=== PATIENT | male | born 1995 | race Caucasian/White ===

== ENCOUNTER 2019-10-09 17:02 | Emergency (ER) | payer OTHER ==
[2019-10-09 17:33] VITALS: BP 106/70; PULSE 76; TEMP 99; BMI 22.7
--- NOTE | 2019-10-09 17:33 | PDOC ---
Rapid Medical Evaluation Chief Complaint: Weakness Time Seen by Provider: 10/09/19 17:29 Medical Evaluation: Allergies Allergy/AdvReac Type Severity Reaction Status Date / Time No Known Allergies Allergy Verified 10/09/19 17:28 10/09/19 17:30 I have performed a brief in-person evaluation of this patient. The patient presents with a chief complaint of: h/o diabetes present with complains of 2 days h/o epigastric abd pains, loose stool and 1 episode of vomiting. Denies fever. pt did not take anything for symptoms. report weakness Pertinent physical exam findings: afebrile I have ordered the following:cbc, cmp, lipase The patient will proceed to the ED for further evaluation. Discharge Disposition - Diagnosis Epigastric abdominal pain - Discharge Dispostion Condition at time of disposition: Stable - Referrals - Patient Instructions - Post Discharge Activity
--- NOTE | 2019-10-09 18:42 | PDOC ---
History of Present Illness - General Chief Complaint: Weakness Stated Complaint: WEAKNESS Time Seen by Provider: 10/09/19 17:29 - History of Present Illness Initial Comments: 10/09/19 18:41 24-year-old male with a past medical history of diabetes presents for evaluation of abdominal pain and vomiting x1 day Past History - Past Medical History Allergies/Adverse Reactions: Allergies Allergy/AdvReac Type Severity Reaction Status Date / Time No Known Allergies Allergy Verified 10/09/19 17:28 Home Medications: Ambulatory Orders Insulin Glargine,Hum.rec.anlog [Basaglar Kwikpen U-100] 35 unit SQ HS 04/24/19 Insulin Lispro [Humalog] 0 unit SQ ASDIR PRN 04/24/19 COPD: No Diabetes: Yes (IDDM dx at 13 years old) - Surgical History Appendectomy: Yes - Psycho Social/Smoking Cessation Hx Smoking History: Never smoked Have you smoked in the past 12 months: No Information on smoking cessation initiated: No Hx Alcohol Use: No Drug/Substance Use Hx: No Substance Use Type: None Hx Substance Use Treatment: No Review of Systems - Review of Systems Constitutional: No: Fever ABD/GI: Yes: Diarrhea, Nausea, Vomiting *Physical Exam - Vital Signs Last Vital Signs Temp Pulse Resp BP Pulse Ox 99.0 F 76 16 106/70 98 10/09/19 17:29 10/09/19 17:29 10/09/19 17:29 10/09/19 17:29 10/09/19 17:29 - Physical Exam 10/09/19 18:41 GENERAL: The patient is awake, alert, and fully oriented, in no acute distress. HEAD: Normal with no signs of trauma. EYES: sclera anicteric, conjunctiva clear. ENT: Ears normal tympanic membranes normal oropharynx clear uvula midline NECK: Normal range of motion LUNGS: Breath sounds equal, clear to auscultation bilaterally. No wheezes, and no crackles. HEART: S1 and S2 without murmur, rub or gallop. ABDOMEN: Soft, diffusely tender without guarding or rebound, normoactive bowel sounds. No masses. EXTREMITIES: Normal range of motion, no edema. No clubbing or cyanosis. No cords, erythema, or tenderness. NEUROLOGICAL: Cranial nerves II through XII grossly intact. PSYCH: Normal mood, normal affect. SKIN: Warm, Dry, normal turgor, no rashes or lesions noted. Medical Decision Making - Medical Decision Making 10/09/19 18:42 Patient requires further work-up not suitable for fast-track will transfer to the main emergency room Discharge - Discharge Information Problems reviewed: Yes Clinical Impression/Diagnosis: Epigastric abdominal pain Condition: Stable - Follow up/Referral - Patient Discharge Instructions - Post Discharge Activity
[2019-10-09 18:59] LABS: BASO % 0.4 % (0-2.0); EOS % 0.6 % (0-4.5); HEMATOCRIT 49.6 % (35.4-49); HEMOGLOBIN 17.2 GM/dL (11.7-16.9); LYMPH % 36.3 % (8-40); MCH 29.9 pg (25.7-33.7); MCHC 34.6 g/dl (32.0-35.9); MEAN CELL VOLUME 86.5 fl (80-96); MONO % 7.9 % (3.8-10.2); NEUT % 54.8 % (42.8-82.8); PLATELET COUNT 243 K/MM3 (134-434); RBC 5.73 M/mm3 (4.00-5.60); RDW 12.3 % (11.9-15.9); WHITE BLOOD COUNT 6.4 K/mm3 (4.0-10.0)
[2019-10-09 19:33] LABS: ALBUMIN 3.9 g/dl (3.4-5.0); BILIRUBIN,TOTAL 0.6 mg/dL (0.2-1); BLOOD UREA NITROGEN 16.1 mg/dL (7-18); CREATININE 1.1 mg/dL (0.55-1.3); TOT PROT 6.9 g/dl (6.4-8.2)
[2019-10-09] MEDS ORDERED: SODIUM CHLORIDE 1,000 ML IV STA (20:27)
[2019-10-09] MEDS ORDERED: FAMOTIDINE 20 MG/50 ML IVPB 20 MG/50 ML MG IVPB ONE ×2 (20:27→20:41)
[2019-10-09] MEDS ORDERED: ACETAMINOPHEN 1000 MG/100 ML VIAL (NON FORMULARY) IVPB ONE (20:27)
[2019-10-09] MEDS ORDERED: ONDANSETRON 4 MG/2 ML VIAL IVPB ONE (20:27)
[2019-10-09] MEDS ORDERED: ACETAMINOPHEN INJECTION 100 ML IVPB ONE (20:40)
[2019-10-09] MEDS ORDERED: ONDANSETRON 4 MG/2 ML VIAL ONE (20:41)
--- NOTE | 2019-10-09 21:39 | PDOC ---
History of Present Illness - General Chief Complaint: Weakness Stated Complaint: WEAKNESS Time Seen by Provider: 10/09/19 17:29 - History of Present Illness Initial Comments: 10/20/19 00:57 10/20/19 00:58 Past History - Past Medical History Allergies/Adverse Reactions: Allergies Allergy/AdvReac Type Severity Reaction Status Date / Time No Known Allergies Allergy Verified 10/09/19 17:28 Home Medications: Ambulatory Orders Insulin Glargine,Hum.rec.anlog [Basaglar Kwikpen U-100] 35 unit SQ HS 04/24/19 Insulin Lispro [Humalog] 0 unit SQ ASDIR PRN 04/24/19 Famotidine [Pepcid] 20 mg PO BID 14 Days #28 tablet 10/09/19 COPD: No Diabetes: Yes (IDDM dx at 13 years old) - Surgical History Appendectomy: Yes - Psycho Social/Smoking Cessation Hx Smoking History: Never smoked Have you smoked in the past 12 months: No Information on smoking cessation initiated: No Hx Alcohol Use: No Drug/Substance Use Hx: No Substance Use Type: None Hx Substance Use Treatment: No Review of Systems - Review of Systems Constitutional: No: Chills, Fever Respiratory: No: Cough, Shortness of Breath *Physical Exam - Vital Signs Last Vital Signs Temp Pulse Resp BP Pulse Ox 99.0 F 76 16 106/70 98 10/09/19 17:29 10/09/19 17:29 10/09/19 17:29 10/09/19 17:29 10/09/19 17:29 - Physical Exam 10/20/19 00:58 GENERAL:Well developed, well nourished. Awake and alert. No acute distress. HEENT:Normocephalic, atraumatic. PERRLA, EOMI. No conjunctival pallor. Sclera are non-icteric. Moist mucous membranes. Oropharynx is clear. NECK: Supple. Full ROM. No JVD. Carotid pulses 2+ and symmetric, without bruits. No thyromegaly. No lymphadenopathy. CARDIOVASCULAR:Regular rate and rhythm. No murmurs, rubs, or gallops. Distal pulses are 2+ and symmetric. PULMONARY: No evidence of respiratory distress. Lungs clear to auscultation bilaterally. No wheezing, rales or rhonchi. ABDOMINAL:Soft. epigastric tenderness Non-distended. No rebound or guarding. No organomegaly. Normoactive bowel sounds. MUSCULOSKELETAL Normal range of motion at all joints. No bony deformities or tenderness. No CVA tenderness. EXTREMITIES: No cyanosis. No clubbing. No edema. No calf tenderness. SKIN: Warm and dry. Normal capillary refill. No rashes. No jaundice. NEUROLOGICAL: Alert, awake, appropriate. Cranial nerves 2-12 intact. No deficits to light touch and temperature in face, upper extremities and lower extremities. No motor deficits in the in face, upper extremities and lower extremities. Normoreflexic in the upper and lower extremities. Normal speech. Toes are down-going bilaterally. Gait is normal without ataxia. PSYCHIATRIC: Cooperative. Good eye contact. Appropriate mood and affect. ED Treatment Course - LABORATORY CBC & Chemistry Diagram: 10/09/19 18:12 10/09/19 18:12 - ADDITIONAL ORDERS Additional order review: Laboratory Results 10/09/19 18:12 Sodium 134 L Potassium 4.0 Chloride 102 Carbon Dioxide 25 Anion Gap 8 BUN 16.1 Creatinine 1.1 Est GFR (CKD-EPI)AfAm 109.09 Est GFR (CKD-EPI)NonAf 94.12 Random Glucose 314 H Calcium 9.0 Total Bilirubin 0.6 AST 11 L ALT 24 Alkaline Phosphatase 72 Total Protein 6.9 Albumin 3.9 Lipase 84 10/09/19 18:12 RBC 5.73 H MCV 86.5 MCHC 34.6 RDW 12.3 MPV 9.0 Neutrophils % 54.8 D Lymphocytes % 36.3 D Monocytes % 7.9 Eosinophils % 0.6 Basophils % 0.4 - Medications Given in the ED: ED Medications Discontinued Medications Generic Name Dose Route Start Last Admin Trade Name Chidi PRN Reason Stop Dose Admin Acetaminophen 1,000 mg 10/09/19 20:27 10/09/19 20:32 Ofirmev Injection - IVPB 10/09/19 20:28 1,000 mg ONCE ONE Administration Famotidine/Sodium Chloride 20 mg in 50 mls @ 100 mls/hr 10/09/19 20:27 10/09/19 20:32 Pepcid 20 Mg Premixed Ivpb - IVPB 10/09/19 20:56 100 mls/hr ONCE ONE Administration Sodium Chloride 1,000 mls @ 1,000 mls/hr 10/09/19 20:27 10/09/19 20:32 Normal Saline - IV 10/09/19 21:26 1,000 mls/hr ASDIR STA Administration Ondansetron HCl 4 mg 10/09/19 20:27 10/09/19 20:32 Zofran Injection IVPB 10/09/19 20:28 4 mg ONCE ONE Administration Medical Decision Making - Medical Decision Making 10/09/19 21:37 Pt reassessed after IV fluids, pepcid and tylenol feeling much better of note, pt states that he has no PCP at this time and [place], PCP information for follow up was provided by meri through [facility] for patient follow up. currently given po will reassess. Discharge - Discharge Information Problems reviewed: Yes Clinical Impression/Diagnosis: Epigastric abdominal pain Condition: Improved Disposition: HOME - Admission No - Additional Discharge Information Prescriptions: Famotidine [Pepcid] 20 mg PO BID 14 Days #28 tablet - Follow up/Referral - Patient Discharge Instructions Patient Printed Discharge Instructions: DI for Abdominal Pain-Adult Additional Instructions: Please return to the emergency department immediately should you feel worse in any way or have any of the following symptoms: increasing or different abdominal pain, persistent vomiting, fevers or shaking chills. Please return to the emergency department for a recheck in 8-12 hours if the pain is persistent or worse so we can re-evaluate you and ensure that you are not developing a problem that would require surgery or hospitalization. - Post Discharge Activity
--- NOTE | 2019-10-09 21:49 | PDOC ---
Documentation entered by Myrna Garcia SCRIBE, acting as scribe for Naheed Jain MD. Naheed Jain MD: This documentation has been prepared by the Radha jerez Xhesika, SCRIBE, under my direction and personally reviewed by me in its entirety. I confirm that the documentation accurately reflects all work, treatment, procedures, and medical decision making performed by me. Attending Attestation - Resident Resident Name: Fausto Tapia - ED Attending Attestation I have performed the following: I have examined & evaluated the patient, The case was reviewed & discussed with the resident, I agree w/resident's findings & plan, Exceptions are as noted - HPI HPI: 10/09/19 21:46 24-year-old male presents with nausea vomiting and diarrhea x1 day - Physicial Exam PE: 10/09/19 21:46 wnwd 24 yo male in no acute distress neck supple lungs cta b.l csv [id number] abd no rebound, no guarding skin warm and dry extremites from, no deformities neuro axox3,ambulatory - Medical Decision Making 10/09/19 21:49 24-year-old male presents with 1 day of nausea vomiting and diarrhea Past medical history significant for type 1 diabetes on insulin Review of his labs shows unremarkable CBC Chemistries do show an elevated glucose of 314 Patient received IV fluids and antiemetics Benign abdominal exam 10/09/19 21:49 Impression gastroenteritis Patient does not follow with a regular physician and will be referred to Pearl aragon at [address] [facility]
== END 2019-10-09 22:30 | disposition home or self-care (01) ==
LOC: JER 17:02 → MERGE 17:02 → JERFT 17:02 → JER 22:30
PROC: 3E033GC Introduction of Other Therapeutic Substance into Peripheral Vein, Percutaneous Approach (ICD-10-PCS; principal; 2019-10-09)
PROC: 3E033NZ Introduction of Analgesics, Hypnotics, Sedatives into Peripheral Vein, Percutaneous Approach (ICD-10-PCS; 2019-10-09)
PROC: 3E033GC Introduction of Other Therapeutic Substance into Peripheral Vein, Percutaneous Approach (ICD-10-PCS; 2019-10-09)
DX: K52.9 Noninfective gastroenteritis and colitis, unspecified (principal); E10.65 Type 1 diabetes mellitus with hyperglycemia; Z79.4 Long term (current) use of insulin
CPT/HCPCS: 36415; 80053; 83690; 85025; 96365; 96375; 99282-25; J0131; J7030

== ENCOUNTER 2019-11-14 12:47 | Inpatient (IN) | payer OTHER ==
[2019-11-14] MEDS ORDERED: ONDANSETRON 4 MG/2 ML VIAL ONE (13:10)
--- NOTE | 2019-11-14 13:22 | PDOC ---
History of Present Illness - General Stated Complaint: BLOOD SUGAR PROBLEM Time Seen by Provider: 11/14/19 13:10 History Source: Patient Exam Limitations: No Limitations - History of Present Illness Initial Comments: 11/14/19 13:25 24 yo M with a hx of IDDM (DKA hx 1 year ago) [facility], vomiting, lightheadedness, and chest pain since yesterday. Per the patient, he states he ran out of his insulin 2 days ago, but his BGM was within normal limits until yesterday when he noticed they were elevated and in the 420s this AM. The patient states he had 1x vomiting episode yesterday NBNB and denies diarrhea. Denies recent travels, recent sick contacts, and contact with those with recent travel from other countries and no other member of his immediate household is sick. His chest pain began this morning, 1- 2 hours ago, constant, located in the center chest without radiation to the left and right chest wall without worsening with exertion. The patient denies the following: fevers, chills, ears/nose/throat pain, SOB, abdominal pain, back pain, dysuria, hematuria, hematochezia, and leg pain/swelling. He ran out of insulin due to insurance reasons. Allergies: NKDA Past History - Past Medical History Allergies/Adverse Reactions: Allergies Allergy/AdvReac Type Severity Reaction Status Date / Time No Known Allergies Allergy Verified 11/15/19 11:19 Home Medications: Ambulatory Orders Insulin Glargine,Hum.rec.anlog [Basaglar Kwikpen U-100] 35 unit SQ HS 04/24/19 Insulin Lispro [Humalog] 0 unit SQ ASDIR PRN 04/24/19 Famotidine [Pepcid] 20 mg PO BID 14 Days #28 tablet 10/09/19 COPD: No Diabetes: Yes - Surgical History Appendectomy: Yes - Psycho Social/Smoking Cessation Hx Smoking History: Never smoked Have you smoked in the past 12 months: No Information on smoking cessation initiated: No Hx Alcohol Use: No Drug/Substance Use Hx: No Review of Systems - Review of Systems Able to Perform ROS?: Yes Is the patient limited German proficient: No Constitutional: No: Chills, Fever, Weakness HEENTM: No: Eye Pain, Ear Pain, Nose Pain, Throat Pain, Mouth Pain Respiratory: No: Cough, Shortness of Breath, Hemoptysis Cardiac (ROS): Yes: Chest Pain, Lightheadedness. No: Palpitations, Chest Tightness ABD/GI: Yes: Nausea, Poor Appetite, Poor Fluid Intake, Vomiting. No: Constipated, Diarrhea, Rectal Bleeding, Abdominal cramping, Tarry Stools : No: Burning, Dysuria, Hematuria Musculoskeletal: No: Back Pain, Joint Pain, Neck Pain Integumentary: No: Bruising, Flushing, Rash Neurological: No: Headache, Numbness, Tingling, Tremors Psychiatric: No: Change in Appetite Endocrine: No: Unexplained Weight Loss Hematologic/Lymphatic: No: Anemia *Physical Exam - Vital Signs Last Vital Signs Temp Pulse Resp BP Pulse Ox 98.1 F 99 H 18 107/49 L 99 11/14/19 13:03 11/14/19 13:03 11/14/19 13:03 11/14/19 13:03 11/14/19 13:03 - Physical Exam General Appearance: Yes: Nourished, Appropriately Dressed. No: Apparent Distress, Obese HEENT: positive: EOMI, CRISTIANA, Normal Voice, Symmetrical, Pharyngeal Erythema, Hearing Grossly Normal. negative: Pale Conjunctivae, Scleral Icterus (R), Scleral Icterus (L), Muffled/Hoarse voice, Tonsillar Exudate, Tonsillar Erythema, Nasal Congestion, Rhinorrhea, Sinus Tenderness, Excessive drooling Neck: positive: Trachea midline, Supple. negative: Tender, Lymphadenopathy (R), Lymphadenopathy (L), Tender lateral, Tender midline Respiratory/Chest: positive: Lungs Clear, Normal Breath Sounds. negative: Chest Tender, Respiratory Distress, Accessory Muscle Use, Rales, Rhonchi, Stridor, Wheezing, Hyperresonant Cardiovascular: positive: Regular Rhythm, Regular Rate, S1, S2. negative: Systolic Murmur Gastrointestinal/Abdominal: positive: Normal Bowel Sounds, Flat, Soft. negative: Tender Lymphatic: negative: Adenopathy Musculoskeletal: positive: Normal Inspection. negative: CVA Tenderness, Vertebral Tenderness Extremity: positive: Normal Capillary Refill, Normal Inspection, Normal Range of Motion. negative: Tender Integumentary: positive: Normal Color, Dry, Warm Neurologic: positive: Fully Oriented, Alert, Normal Mood/Affect. negative: Facial Droop, Numbness, Sensory Deficit ED Treatment Course - LABORATORY CBC & Chemistry Diagram: 11/15/19 06:45 11/15/19 20:00 - ADDITIONAL ORDERS Additional order review: Laboratory Results 11/14/19 13:00 POC Glucometer 420 11/14/19 13:00 POC Glucometer 420 Medical Decision Making - Medical Decision Making 24 yo M with a hx of IDDM (DKA hx 1 year ago) presents to the emergency department with nausea, vomiting, lightheadedness, and chest pain since yesterday. Initial vitals; Initial Vital Signs Temp Pulse Resp BP Pulse Ox 98.1 F 99 H 18 107/49 L 99 11/14/19 13:03 11/14/19 13:03 11/14/19 13:03 11/14/19 13:03 11/14/19 13:03 Work up: patient presents to the emergency department with N/V with lightheadedness and chest pain in the setting of running out of insulin over the past 48 hours with a hx of DKA. The patient endorses having a BGM of 420s this morning. concerns for HONK vs DKA, but the patient is not AMS currently. Will obtain labs for DKA assessment and will obtain EKG and troponin for ACS rule out, CXR to rule out PNA (A possible etiology to the hyperglycemia) and UA to assess for UTI (no mal-urinary symptoms). Laboratory Tests 11/14/19 11/14/19 11/14/19 13:00 13:30 13:30 WBC 5.3 RBC 5.36 Hgb 16.0 Hct 46.9 MCV 87.6 MCH 29.9 MCHC 34.1 RDW 12.6 Plt Count 205 MPV 8.7 Absolute Neuts (auto) 4.2 Neutrophils % 78.8 Lymphocytes % 16.7 Monocytes % 3.8 Eosinophils % 0.2 Basophils % 0.5 Nucleated RBC % 0 VBG pH POC VBG pCO2 POC VBG pO2 VBG HCO3 VBG O2 Sat (Soco) VBG Base Excess Sodium Potassium Chloride Carbon Dioxide Anion Gap BUN Creatinine Est GFR (CKD-EPI)AfAm Est GFR (CKD-EPI)NonAf POC Glucometer 420 Random Glucose Lactic Acid Calcium Magnesium Total Bilirubin AST ALT Alkaline Phosphatase Creatine Kinase Troponin I Total Protein Albumin Beta-Hydroxybutyrate 72.2 H Urine Color Urine Appearance Urine pH Ur Specific [place] Urine Protein Urine Glucose (UA) Urine Ketones Urine Blood Urine Nitrite Urine Bilirubin Urine Urobilinogen Ur Leukocyte Esterase 11/14/19 11/14/19 11/14/19 13:30 13:30 13:30 WBC RBC Hgb Hct MCV MCH MCHC RDW Plt Count MPV Absolute Neuts (auto) Neutrophils % Lymphocytes % Monocytes % Eosinophils % Basophils % Nucleated RBC % VBG pH 7.26 L POC VBG pCO2 34.2 L POC VBG pO2 63.6 H VBG HCO3 14.9 L VBG O2 Sat (Soco) 90.1 H VBG Base Excess -10.9 L Sodium 137 Potassium 4.8 Chloride 104 Carbon Dioxide 16 L Anion Gap 17 H BUN 17.1 Creatinine 1.0 Est GFR (CKD-EPI)AfAm 122.41 Est GFR (CKD-EPI)NonAf 105.62 POC Glucometer Random Glucose 395 H Lactic Acid 1.7 Calcium 8.7 Magnesium 1.6 L Total Bilirubin 1.2 H AST 14 L ALT 20 Alkaline Phosphatase 66 Creatine Kinase 88 Troponin I < 0.02 Total Protein 6.3 L Albumin 3.6 Beta-Hydroxybutyrate Urine Color Urine Appearance Urine pH Ur Specific [place] Urine Protein Urine Glucose (UA) Urine Ketones Urine Blood Urine Nitrite Urine Bilirubin Urine Urobilinogen Ur Leukocyte Esterase 11/14/19 11/14/19 11/14/19 13:50 15:14 16:18 WBC RBC Hgb Hct MCV MCH MCHC RDW Plt Count MPV Absolute Neuts (auto) Neutrophils % Lymphocytes % Monocytes % Eosinophils % Basophils % Nucleated RBC % VBG pH POC VBG pCO2 POC VBG pO2 VBG HCO3 VBG O2 Sat (Soco) VBG Base Excess Sodium Potassium Chloride Carbon Dioxide Anion Gap BUN Creatinine Est GFR (CKD-EPI)AfAm Est GFR (CKD-EPI)NonAf POC Glucometer 388 382 Random Glucose Lactic Acid Calcium Magnesium Total Bilirubin AST ALT Alkaline Phosphatase Creatine Kinase Troponin I Total Protein Albumin Beta-Hydroxybutyrate Urine Color Yellow Urine Appearance Clear Urine pH 5.0 Ur Specific [place] 1.039 H Urine Protein Negative Urine Glucose (UA) 3+ H Urine Ketones 4+ H Urine Blood Negative Urine Nitrite Negative Urine Bilirubin Negative Urine Urobilinogen 0.2 Ur Leukocyte Esterase Negative 11/14/19 11/14/19 17:38 17:39 WBC RBC Hgb Hct MCV MCH MCHC RDW Plt Count MPV Absolute Neuts (auto) Neutrophils % Lymphocytes % Monocytes % Eosinophils % Basophils % Nucleated RBC % VBG pH POC VBG pCO2 POC VBG pO2 VBG HCO3 VBG O2 Sat (Soco) VBG Base Excess Sodium Potassium Chloride Carbon Dioxide Anion Gap BUN Creatinine Est GFR (CKD-EPI)AfAm Est GFR (CKD-EPI)NonAf POC Glucometer 452 423 Random Glucose Lactic Acid Calcium Magnesium Total Bilirubin AST ALT Alkaline Phosphatase Creatine Kinase Troponin I Total Protein Albumin Beta-Hydroxybutyrate Urine Color Urine Appearance Urine pH Ur Specific [place] Urine Protein Urine Glucose (UA) Urine Ketones Urine Blood Urine Nitrite Urine Bilirubin Urine Urobilinogen Ur Leukocyte Esterase Magnesium 1.6 pH is 7.26 with a gap of 17 with bicarb of 16. Glucose 395 and beta-hyd roxybutyrate of 72.2. The patient's xray is negative for acute process A total of 1 L of NS total given. The patient given a bolus of 1 L of LR with 20 meq of potassium The patient has insulin drip of 6 units/hr. Roughly 0.1 units/kg/hr . The patient was given 1 gram of tylenol for continued chest pain. CXR negative for acute pathologies EKG: ventricular rate 102 bpm, KS is 124 ms, QRS is 88 ms. Sinus tachycardia with no ST elevation or depression. No TWI Patient was re-assessed. BG rised to approximately 423. Patient was given 6 units bolus of IV insulin with rate of drip increased to 9 units/hr. The patient was given an additional 1 L of LR for fluid resuscitation. Per the patient, they felt the pain had nearly resolved in the chest. Awaiting next BMP and trop. Gap resolved and negative troponin. Patient was endorsed to the admitting team and accepted for admission. Discharge - Discharge Information Problems reviewed: Yes Clinical Impression/Diagnosis: DKA (diabetic ketoacidoses) - Follow up/Referral - Patient Discharge Instructions - Post Discharge Activity
[2019-11-14] MEDS ORDERED: SODIUM CHLORIDE 1,000 ML IV STA (13:24)
[2019-11-14 14:06] LABS: BASO % 0.5 % (0-2.0); EOS % 0.2 % (0-4.5); HEMATOCRIT 46.9 % (35.4-49); LYMPH % 16.7 % (8-40); MCH 29.9 pg (25.7-33.7); MCHC 34.1 g/dl (32.0-35.9); MEAN CELL VOLUME 87.6 fl (80-96); MEAN PLT VOLUME 8.7 fl (7.5-11.1); MONO % 3.8 % (3.8-10.2); NEUT % 78.8 % (42.8-82.8); PLATELET COUNT 205 K/MM3 (134-434); RBC 5.36 M/mm3 (4.00-5.60); RDW 12.6 % (11.9-15.9); WHITE BLOOD COUNT 5.3 K/mm3 (4.0-10.0)
[2019-11-14 14:13] LABS: URINE APPEARANCE CLEAR; URINE BILIRUBIN NEGATIVE (NEGATIVE); URINE COLOR YELLOW; URINE GLUCOSE (UA) 3+ (NEGATIVE); URINE KETONE 4+ (NEGATIVE); URINE LEUK ESTERASE NEGATIVE (NEGATIVE); URINE NITRITE NEGATIVE (NEGATIVE); URINE PROTEIN NEGATIVE (NEGATIVE); URINE UROBILINOGEN 0.2 mg/dL (0.2-1.0)
[2019-11-14 14:26] LABS: VENOUS PC02 34.2 mmHg (38-52); VENOUS PH 7.26 (7.31-7.41); VENOUS PO2 63.6 mmHg (28-48)
--- NOTE | 2019-11-14 14:30 | PDOC ---
Documentation entered by Magdiel Vivas SCRIBE, acting as scribe for Erin You MD. Erin You MD: This documentation has been prepared by the Ortega jerez Elijah, SCRIBE, under my direction and personally reviewed by me in its entirety. I confirm that the documentation accurately reflects all work, treatment, procedures, and medical decision making performed by me. Attending Attestation - Resident Resident Name: JorgitoReji - ED Attending Attestation I have performed the following: I have examined & evaluated the patient, The case was reviewed & discussed with the resident, I agree w/resident's findings & plan - HPI HPI: 11/14/19 14:11 Patient is a 24 year old male with a significant past medical history of IDDM ( DKA hx 1 year ago) who presents today with nausea, vomiting, Light headedness and CP. As per family at bedside, patient ran out of Insulin on Tuesday and since his symptoms onset. Patient had one episode of NBNB vomiting and at this time is still nauseas. Patient has been taking Lantus that he was receiving from his Aunt from the [place] once daily in the morning. Allergies: NKA - Physicial Exam PE: 11/14/19 14:19 GENERAL: Awake, alert, and fully oriented, in no acute distress HEAD: No signs of trauma EYES: PERRLA, EOMI, sclera anicteric, conjunctiva clear ENT: Auricles normal inspection, hearing grossly normal, nares patent, oropharynx clear without exudates. Moist mucosa NECK: Normal ROM, supple, no lymphadenopathy, JVD, or masses LUNGS: Breath sounds equal, clear to auscultation bilaterally. No wheezes, and no crackles HEART: +Systolic Sjection Murmur ABDOMEN: Soft, nontender, normoactive bowel sounds. No guarding, no rebound. No masses EXTREMITIES: Normal range of motion, no edema. No clubbing or cyanosis. No cords, erythema, or tenderness NEUROLOGICAL: Cranial nerves II through XII grossly intact. Normal speech, normal gait SKIN: Warm, Dry, normal turgor, no rashes or lesions noted. - Medical Decision Making 11/14/19 14:26 24yoM with no primary care, no insurance, hx of DM type 1 presents w/ acute onset of n/v in setting of running out of his Lantus. [place] sent to him by [place] the [place], he is undocumented. - labs r/o DKA - cardaic monitor - ekg - ivf - insulin bolus and drip prn - admit.
[2019-11-14 14:48] LABS: ALBUMIN 3.6 g/dl (3.4-5.0); ALK PHOS 66 U/L (45-117); ANION GAP 17 MMOL/L (8-16); BILIRUBIN,TOTAL 1.2 mg/dL (0.2-1); BLOOD UREA NITROGEN 17.1 mg/dL (7-18); CALCIUM 8.7 mg/dL (8.5-10.1); CHLORIDE 104 mmol/L (98-107); CO2 16 mmol/L (21-32); GLUCOSE,RANDOM 395 mg/dL (74-106); MAGNESIUM 1.6 mg/dL (1.8-2.4); POTASSIUM 4.8 mmol/L (3.5-5.1); SGOT/AST 14 U/L (15-37); SGPT/ALT 20 U/L (13-61); SODIUM 137 mmol/L (136-145); TOT PROT 6.3 g/dl (6.4-8.2)
[2019-11-14] MEDS ORDERED: MAGNESIUM SULF 50% (8.12 MEQ/2 ML-1 GM VIAL) IVPB ONE (15:32)
[2019-11-14] MEDS ORDERED: LACTATED RINGERS SOLUTION 1000 ML INFUS.BAG IV ONE ×3 (15:39→21:28)
[2019-11-14] MEDS ORDERED: SODIUM CHLORIDE 0.9%/KCL 20 MEQ/1,000 ML INFUS.BAG IV SCH ×2 (15:45→20:00)
[2019-11-14] MEDS ORDERED: INSULIN REGULAR 100 UNITS in SODIUM CHLORIDE 99 ML IVPB SCH ×2 (15:45→18:00)
[2019-11-14] MEDS ORDERED: ACETAMINOPHEN 1000 MG/100 ML VIAL (NON FORMULARY) IVPB ONE (16:10)
[2019-11-14] MEDS ORDERED: INSULIN REGULAR HUMAN 100 UNITS/ML *VIAL ONE (16:13)
[2019-11-14] MEDS ORDERED: ACETAMINOPHEN INJECTION 100 ML IVPB ONE (16:17)
[2019-11-14] MEDS ORDERED: INSULIN REGULAR HUMAN 100 UNITS/ML *VIAL IVPUSH ONE (17:52)
[2019-11-14] MEDS ORDERED: MAGNESIUM 1GM/D5W - 1 GM/100 ML IVPB IVPB ONE (18:36)
[2019-11-14 21:06] LABS: BLOOD UREA NITROGEN 16.4 mg/dL (7-18); CREATININE 1.2 mg/dL (0.55-1.3); GLUCOSE,RANDOM 362 mg/dL (74-106); SODIUM 138 mmol/L (136-145)
[2019-11-14 21:07] LABS: ANION GAP 15 MMOL/L (8-16); CALCIUM 8.2 mg/dL (8.5-10.1); CHLORIDE 110 mmol/L (98-107); CO2 14 mmol/L (21-32); POTASSIUM 4.4 mmol/L (3.5-5.1)
--- NOTE | 2019-11-14 21:43 | PDOC ---
*Physical Exam - Vital Signs Last Vital Signs Temp Pulse Resp BP Pulse Ox 98.8 F 96 H 18 102/55 L 99 11/14/19 18:47 11/14/19 18:47 11/14/19 18:47 11/14/19 18:47 11/14/19 18:47 ED Treatment Course - LABORATORY CBC & Chemistry Diagram: 11/14/19 13:30 11/14/19 19:15 - ADDITIONAL ORDERS Additional order review: Laboratory Results 11/14/19 11/14/19 11/14/19 21:23 20:33 19:17 VBG pH POC VBG pCO2 POC VBG pO2 VBG HCO3 VBG O2 Sat (Soco) VBG Base Excess Sodium Potassium Chloride Carbon Dioxide Anion Gap BUN Creatinine Est GFR (CKD-EPI)AfAm Est GFR (CKD-EPI)NonAf POC Glucometer 212 262 358 Random Glucose Lactic Acid Calcium Magnesium Total Bilirubin AST ALT Alkaline Phosphatase Creatine Kinase Troponin I Total Protein Albumin Beta-Hydroxybutyrate Urine Color Urine Appearance Urine pH Ur Specific [place] Urine Protein Urine Glucose (UA) Urine Ketones Urine Blood Urine Nitrite Urine Bilirubin Urine Urobilinogen Ur Leukocyte Esterase 11/14/19 11/14/19 11/14/19 19:15 17:39 17:38 VBG pH POC VBG pCO2 POC VBG pO2 VBG HCO3 VBG O2 Sat (Soco) VBG Base Excess Sodium 138 Potassium 4.4 Chloride 110 H Carbon Dioxide 14 L Anion Gap 15 BUN 16.4 Creatinine 1.2 Est GFR (CKD-EPI)AfAm 98.19 Est GFR (CKD-EPI)NonAf 84.72 POC Glucometer 423 452 Random Glucose 362 H Lactic Acid Calcium 8.2 L Magnesium Total Bilirubin AST ALT Alkaline Phosphatase Creatine Kinase Troponin I < 0.02 Total Protein Albumin Beta-Hydroxybutyrate Urine Color Urine Appearance Urine pH Ur Specific [place] Urine Protein Urine Glucose (UA) Urine Ketones Urine Blood Urine Nitrite Urine Bilirubin Urine Urobilinogen Ur Leukocyte Esterase 11/14/19 11/14/19 11/14/19 16:18 15:14 13:50 VBG pH POC VBG pCO2 POC VBG pO2 VBG HCO3 VBG O2 Sat (Soco) VBG Base Excess Sodium Potassium Chloride Carbon Dioxide Anion Gap BUN Creatinine Est GFR (CKD-EPI)AfAm Est GFR (CKD-EPI)NonAf POC Glucometer 382 388 Random Glucose Lactic Acid Calcium Magnesium Total Bilirubin AST ALT Alkaline Phosphatase Creatine Kinase Troponin I Total Protein Albumin Beta-Hydroxybutyrate Urine Color Yellow Urine Appearance Clear Urine pH 5.0 Ur Specific [place] 1.039 H Urine Protein Negative Urine Glucose (UA) 3+ H Urine Ketones 4+ H Urine Blood Negative Urine Nitrite Negative Urine Bilirubin Negative Urine Urobilinogen 0.2 Ur Leukocyte Esterase Negative 11/14/19 11/14/19 11/14/19 13:30 13:30 13:30 VBG pH 7.26 L POC VBG pCO2 34.2 L POC VBG pO2 63.6 H VBG HCO3 14.9 L VBG O2 Sat (Soco) 90.1 H VBG Base Excess -10.9 L Sodium 137 Potassium 4.8 Chloride 104 Carbon Dioxide 16 L Anion Gap 17 H BUN 17.1 Creatinine 1.0 Est GFR (CKD-EPI)AfAm 122.41 Est GFR (CKD-EPI)NonAf 105.62 POC Glucometer Random Glucose 395 H Lactic Acid 1.7 Calcium 8.7 Magnesium 1.6 L Total Bilirubin 1.2 H AST 14 L ALT 20 Alkaline Phosphatase 66 Creatine Kinase 88 Troponin I < 0.02 Total Protein 6.3 L Albumin 3.6 Beta-Hydroxybutyrate Urine Color Urine Appearance Urine pH Ur Specific [place] Urine Protein Urine Glucose (UA) Urine Ketones Urine Blood Urine Nitrite Urine Bilirubin Urine Urobilinogen Ur Leukocyte Esterase 11/14/19 11/14/19 13:30 13:00 VBG pH POC VBG pCO2 POC VBG pO2 VBG HCO3 VBG O2 Sat (Soco) VBG Base Excess Sodium Potassium Chloride Carbon Dioxide Anion Gap BUN Creatinine Est GFR (CKD-EPI)AfAm Est GFR (CKD-EPI)NonAf POC Glucometer 420 Random Glucose Lactic Acid Calcium Magnesium Total Bilirubin AST ALT Alkaline Phosphatase Creatine Kinase Troponin I Total Protein Albumin Beta-Hydroxybutyrate 72.2 H Urine Color Urine Appearance Urine pH Ur Specific [place] Urine Protein Urine Glucose (UA) Urine Ketones Urine Blood Urine Nitrite Urine Bilirubin Urine Urobilinogen Ur Leukocyte Esterase 11/14/19 11/14/19 11/14/19 21:23 20:33 19:17 RBC MCV MCHC RDW MPV Neutrophils % Lymphocytes % Monocytes % Eosinophils % Basophils % POC Glucometer 212 262 358 11/14/19 11/14/19 11/14/19 17:39 17:38 16:18 RBC MCV MCHC RDW MPV Neutrophils % Lymphocytes % Monocytes % Eosinophils % Basophils % POC Glucometer 423 452 382 11/14/19 11/14/19 11/14/19 15:14 13:30 13:00 RBC 5.36 MCV 87.6 MCHC 34.1 RDW 12.6 MPV 8.7 Neutrophils % 78.8 Lymphocytes % 16.7 Monocytes % 3.8 Eosinophils % 0.2 Basophils % 0.5 POC Glucometer 388 420 - Medications Given in the ED: ED Medications Discontinued Medications Generic Name Dose Route Start Last Admin Trade Name Chidi PRN Reason Stop Dose Admin Acetaminophen 1,000 mg 11/14/19 16:10 11/14/19 16:35 Ofirmev Injection - IVPB 11/14/19 16:11 1,000 mg ONCE ONE Administration Sodium Chloride 1,000 mls @ 1,000 mls/hr 11/14/19 13:24 11/14/19 13:44 Normal Saline - IV 11/14/19 14:23 1,000 mls/hr ASDIR STA Administration Insulin Human Regular 100 100 mls @ 6.62 mls/hr 11/14/19 15:45 11/14/19 16:31 units/ Sodium Chloride IVPB 0.1 units/kg/hr TITR NAHOMI 6.62 mls/hr Administration Protocol 0.1 UNITS/KG/HR Insulin Human Regular 6 units 11/14/19 17:52 11/14/19 18:05 Novolin R Vial *For Ivpush Or Iv Drip Only* IVPUSH 11/14/19 17:53 6 units ONCE ONE Administration Lactated Ringer's 1,000 ml 11/14/19 15:39 11/14/19 16:25 Lactated Ringers Solution IV 11/14/19 15:40 1,000 ml ONCE ONE Administration Lactated Ringer's 1,000 ml 11/14/19 17:06 11/14/19 17:44 Lactated Ringers Solution IV 11/14/19 17:07 1,000 ml ONCE ONE Administration Magnesium Sulfate 1 gm 11/14/19 15:32 11/14/19 18:46 Magnesium Sulfate IVPB 11/14/19 15:33 1 gm ONCE ONE Administration Medical Decision Making - Medical Decision Making 11/14/19 21:41 24 yo DM I here with hyperglycemia signed out to me by day team, assumed care of pt at 7 pm. awaiting repeat labs. pt was found to be in DKA with hyperglycemia. my reassessment of patient calm sleeping, in no acute distress. pt states he gets his meds from [place] and had run out few days ago. has no meds at home. is usure, but thinks he takes lantus 25 units Q am, and short acting with meals. gap was elevated. most recent levels gap was closed at 15, sugar now at 215. will discontinue drip and admit for glucose control. pt does not have meds at home. will likely require diabetic teaching. Discharge - Discharge Information Problems reviewed: Yes Clinical Impression/Diagnosis: DKA (diabetic ketoacidoses) - Admission Yes - Follow up/Referral - Patient Discharge Instructions - Post Discharge Activity
[2019-11-14] MEDS ORDERED: INSULIN (LEVEMIR) 100 UNITS/ML UNITS SQ STA (23:38)
--- NOTE | 2019-11-14 23:42 | HP ---
CHIEF COMPLAINT: nausea & vomiting, elevated BGM at home PCP: none HISTORY OF PRESENT ILLNESS: 24 y.o. M PMH T1DM diagnosed at age 13 presenting for hyperglycemia. The patient [place] (takes 25U Lantus daily and 3U aspart before meals) but ran out of lantus on Tuesday (11/12/2019). He does not follow up with a PCP but says he has been buying his own insulin and using it based on his fingersticks at home, which he takes regularly. This morning he noticed his BGM was 420's. He has been nauseous since 11/11 and has 1 episode NBNB emesis on 11/12. No recent changes in diet or exercise regimen. Denies [place]/ fevers/ dysuria/ polyuria/ hematuria/ myalgias. Does endorse mild discomfort to ant chest wall, radiates to b/l axilla, no exacerbating factors. The chest discomfort began yesterday and has since been subsiding. ER course was notable for: (1) 20kcl in 1l ns (2) 4L IVF: 2LR, 2 NS (with 20meq KCl each) (3) serum glucose 362, fingerstick 420, B-hydroxybutyrate 72, anion gap 17 Recent Travel: denies. moved [facility] from the 5 yrs ago PAST MEDICAL HISTORY: t1dm PAST SURGICAL HISTORY: L mandible surgery in 2019, appendectomy in 2018 Social History: Smoking: denies Alcohol:denies Drugs: denies Family History: DM in grandmother & brother Allergies No Known Allergies Allergy (Verified 11/14/19 13:07) HOME MEDICATIONS: insulin aspart PHYSICAL EXAMINATION Vital Signs - 24 hr 11/14/19 11/14/19 11/14/19 13:03 13:20 14:29 Temperature 98.1 F Pulse Rate 99 H Pulse Rate [ 105 H Apical] Respiratory 18 19 Rate Blood Pressure 107/49 L Blood Pressure [Left Arm] Blood Pressure 107/66 [Right Arm] O2 Sat by Pulse 99 99 99 Oximetry (%) 11/14/19 11/14/19 11/14/19 18:16 18:47 21:58 Temperature 98.8 F 98.7 F Pulse Rate Pulse Rate [ 96 H 102 H Apical] Respiratory 19 18 17 Rate Blood Pressure Blood Pressure 102/55 L 103/57 L [Left Arm] Blood Pressure [Right Arm] O2 Sat by Pulse 99 99 100 Oximetry (%) 11/14/19 21:59 Temperature Pulse Rate Pulse Rate [ Apical] Respiratory 17 Rate Blood Pressure Blood Pressure [Left Arm] Blood Pressure [Right Arm] O2 Sat by Pulse 100 Oximetry (%) GENERAL: Awake, alert, and fully oriented, in no acute distress. HEENT: NCAT LUNGS: Breath sounds equal, clear to auscultation bilaterally. No wheezes, and no crackles. No accessory muscle use. HEART: tachycardic, normal S1 and S2 without murmur, rub or gallop. Mild TTP ant chest wall. ABDOMEN: Soft, nontender, not distended, normoactive bowel sounds, no guarding MUSCULOSKELETAL: No CVA tenderness. EXTREMITIES: 2+ pulses, warm, well-perfused. No calf tenderness. No peripheral edema. SKIN: no rashes or lesions noted Laboratory Results - last 24 hr Laboratory Last Values WBC 5.3 K/mm3 (4.0-10.0) 11/14/19 13:30 RBC 5.36 M/mm3 (4.00-5.60) 11/14/19 13:30 Hgb 16.0 GM/dL (11.7-16.9) 11/14/19 13:30 Hct 46.9 % (35.4-49) 11/14/19 13:30 MCV 87.6 fl (80-96) 11/14/19 13:30 MCH 29.9 pg (25.7-33.7) 11/14/19 13:30 MCHC 34.1 g/dl (32.0-35.9) 11/14/19 13:30 RDW 12.6 % (11.9-15.9) 11/14/19 13:30 Plt Count 205 K/MM3 (134-434) 11/14/19 13:30 MPV 8.7 fl (7.5-11.1) 11/14/19 13:30 Absolute Neuts (auto) 4.2 K/mm3 (1.5-8.0) 11/14/19 13:30 Neutrophils % 78.8 % (42.8-82.8) 11/14/19 13:30 Lymphocytes % 16.7 % (8-40) 11/14/19 13:30 Monocytes % 3.8 % (3.8-10.2) 11/14/19 13:30 Eosinophils % 0.2 % (0-4.5) 11/14/19 13:30 Basophils % 0.5 % (0-2.0) 11/14/19 13:30 Nucleated RBC % 0 % (0-0) 11/14/19 13:30 VBG pH 7.26 (7.31-7.41) L 11/14/19 13:30 POC VBG pCO2 34.2 mmHg (38-52) L 11/14/19 13:30 POC VBG pO2 63.6 mmHg (28-48) H 11/14/19 13:30 VBG HCO3 14.9 mmol/L (23-29) L 11/14/19 13:30 VBG O2 Sat (Soco) 90.1 % (70-80) H 11/14/19 13:30 VBG Base Excess -10.9 meq/l (-2-2) L 11/14/19 13:30 Sodium 138 mmol/L (136-145) 11/14/19 19:15 Potassium 4.4 mmol/L (3.5-5.1) 11/14/19 19:15 Chloride 110 mmol/L (98-107) H 11/14/19 19:15 Carbon Dioxide 14 mmol/L (21-32) L 11/14/19 19:15 Anion Gap 15 MMOL/L (8-16) 11/14/19 19:15 BUN 16.4 mg/dL (7-18) 11/14/19 19:15 Creatinine 1.2 mg/dL (0.55-1.3) 11/14/19 19:15 Est GFR (CKD-EPI)AfAm 98.19 11/14/19 19:15 Est GFR (CKD-EPI)NonAf 84.72 11/14/19 19:15 POC Glucometer 222 UNITS (80-120) 11/14/19 23:43 Random Glucose 362 mg/dL (74-106) H 11/14/19 19:15 Lactic Acid 1.7 mmol/L (0.4-2.0) 11/14/19 13:30 Calcium 8.2 mg/dL (8.5-10.1) L 11/14/19 19:15 Magnesium 1.6 mg/dL (1.8-2.4) L 11/14/19 13:30 Total Bilirubin 1.2 mg/dL (0.2-1) H 11/14/19 13:30 AST 14 U/L (15-37) L 11/14/19 13:30 ALT 20 U/L (13-61) 11/14/19 13:30 Alkaline Phosphatase 66 U/L (45-117) 11/14/19 13:30 Creatine Kinase 88 U/L (26-308) 11/14/19 13:30 Troponin I < 0.02 ng/ml (0.00-0.05) 11/14/19 19:15 Total Protein 6.3 g/dl (6.4-8.2) L 11/14/19 13:30 Albumin 3.6 g/dl (3.4-5.0) 11/14/19 13:30 Beta-Hydroxybutyrate 72.2 mg/dL (0.2-2.8) H 11/14/19 13:30 Urine Color Yellow 11/14/19 13:50 Urine Appearance Clear 11/14/19 13:50 Urine pH 5.0 (5.0-8.0) 11/14/19 13:50 Ur Specific [place] 1.039 (1.010-1.035) H 11/14/19 13:50 Urine Protein Negative (NEGATIVE) 11/14/19 13:50 Urine Glucose (UA) 3+ (NEGATIVE) H 11/14/19 13:50 Urine Ketones 4+ (NEGATIVE) H 11/14/19 13:50 Urine Blood Negative (NEGATIVE) 11/14/19 13:50 Urine Nitrite Negative (NEGATIVE) 11/14/19 13:50 Urine Bilirubin Negative (NEGATIVE) 11/14/19 13:50 Urine Urobilinogen 0.2 mg/dL (0.2-1.0) 11/14/19 13:50 Ur Leukocyte Esterase Negative (NEGATIVE) 11/14/19 13:50 ASSESSMENT/PLAN: 24 y.o. M PMH T1DM presenting for hyperglycemia, nausea and emesis found to be in DKA #Diabetic ketoacidosis -Initial labs: anion gap 17, Beta-HB 72, serum glucose 360s, fingerstick 420 -UA significant for 4+ ketones, 3+ glucose -Given an initial 2L NS w/ 20meq KCl, additional 2L LR in ED -6U insulin loading dose given & insulin drip initiated -Repeat BMP showing gap improvement to 15, bgms improved to low 200s -insulin drip d/c'd -f/u another repeat BMP, lytes-- monitor K+ closely & replete prn -HbA1c -ABG sent -BGMs ACHS, ISS implemented -Starting levemir 10U HS here, will resume home lantus 25mg HS on discharge -continue IVF hydration -trial of CLD #Chest wall tenderness -EKG shows sinus tachycardia, no ST/T changes -trop neg x 1 -can f/u repeat EKG in AM -continue to monitor, tylenol prn for pain #FEN -S/p 6L total IVF, continuing now 1/2NS @200mL/hr -potassium supplementation, f/u repeat bmp -trial of clears #PPX -LVX sq daily #Dispo Med surg social work consulted will need outpatient PCP and endocrinology follow up for optimization of diabetes medication regimen and proper usage Visit type - Emergency Visit Emergency Visit: Yes ED Registration Date: 11/14/19 Care time: The patient presented to the Emergency Department on the above date and was hospitalized for further evaluation of their emergent condition. - New Patient This patient is new to me today: Yes Date on this admission: 11/15/19 - Critical Care Critical Care patient: No ATTENDING PHYSICIAN STATEMENT I saw and evaluated the patient. I reviewed the resident's note and discussed the case with the resident. I agree with the resident's findings and plan as documented. SUBJECTIVE: OBJECTIVE: ASSESSMENT AND PLAN:
[2019-11-14] MEDS ORDERED: SODIUM CHLORIDE 1,000 ML IV SCH (23:45)
[2019-11-15] MEDS ORDERED: INSULIN (LEVEMIR) 100 UNITS/ML UNITS SQ ONE ×3 (00:37→11:34)
[2019-11-15 01:06] LABS: BLOOD UREA NITROGEN 11.6 mg/dL (7-18); CREATININE 0.9 mg/dL (0.55-1.3); MAGNESIUM 1.6 mg/dL (1.8-2.4); PHOSPHOROUS 2.8 mg/dL (2.5-4.9)
--- NOTE | 2019-11-15 01:42 | PN ---
Teaching Attending Note Name of Resident: Jackie Gibson ATTENDING PHYSICIAN STATEMENT I saw and evaluated the patient. I reviewed the resident's note and discussed the case with the resident. I agree with the resident's findings and plan as documented. SUBJECTIVE: 24-year-old male from [place] with a history of type 1 diabetes mellitus presenting to the hospital complaining of hyperglycemia and not being able to take his medication since this past Tuesday. Patient allegedly moved from [facility] to the [facility] 5 years ago however does not have a doctor here in receives his medications from [facility]. He takes 25 units of Lantus daily as well as 3 units of aspart insulin prior to meals. He reports running out of his Lantus, takes his sugar at home measured his glucose at home and noted that it was over 400 which prompted him to present to the emergency room. Patient reports 2 episodes of vomiting, abdominal pain. Denies any illicit drug use, excessive EtOH, or cigarette smoking. Patient was initially given a loading dose of insulin in the emergency room and then briefly placed on insulin drip. OBJECTIVE: Last Vital Signs Temp Pulse Resp BP Pulse Ox 98.7 F 107 H 22 H 101/54 L 100 11/14/19 21:58 11/15/19 00:00 11/15/19 00:00 11/15/19 00:00 11/15/19 00:00 Physical exam showed a well-built male in no apparent distress. Moist mucous membranes, no rashes noted on skin. No pedal edema. Abnormal Lab Results 11/14/19 11/14/19 11/14/19 13:30 13:30 13:30 VBG pH 7.26 L POC VBG pCO2 34.2 L POC VBG pO2 63.6 H VBG HCO3 14.9 L VBG O2 Sat (Soco) 90.1 H VBG Base Excess -10.9 L Chloride Carbon Dioxide 16 L Anion Gap 17 H Random Glucose 395 H Calcium Magnesium 1.6 L Total Bilirubin 1.2 H AST 14 L Total Protein 6.3 L Beta-Hydroxybutyrate 72.2 H Ur Specific [place] Urine Glucose (UA) Urine Ketones 11/14/19 11/14/19 11/14/19 13:50 19:15 23:58 VBG pH POC VBG pCO2 POC VBG pO2 VBG HCO3 VBG O2 Sat (Soco) VBG Base Excess Chloride 110 H 112 H Carbon Dioxide 14 L 17 L Anion Gap Random Glucose 362 H 229 H Calcium 8.2 L 8.0 L Magnesium 1.6 L Total Bilirubin AST Total Protein Beta-Hydroxybutyrate Ur Specific [place] 1.039 H Urine Glucose (UA) 3+ H Urine Ketones 4+ H EKG showed sinus tachycardia, chest x-ray reviewed, within normal limits. ASSESSMENT AND PLAN: 24-year-old male with mild DKA, anion gap was closed on repeat chemistry. Secondary to medication noncompliance as patient did not have his Lantus insulin. Very high beta hydroxybutyrate, positive urine ketones found. Admit to [facility] IV fluid hydration aggressively Replete electrolytes aggressively including magnesium and phosphate NovoLog Insulin sliding scale Lantus insulin 25 units nightly Basal insulin was administered Consider endocrinology consult coating line worker intervention A1c Zofran if nausea or vomiting Heparin subcutaneously for DVT prophylaxis
[2019-11-15] MEDS ORDERED: MAGNESIUM SULF 50% (8.12 MEQ/2 ML-1 GM VIAL) IVPB ONE (01:44)
[2019-11-15 03:35] VITALS: BMI 25.8
[2019-11-15] MEDS ORDERED: INSULIN SLIDING SCALE (NOVOLOG) 1 VIAL SQ SCH (07:00)
[2019-11-15 07:36] LABS: ARTERIAL BLOOD GAS BASE EXCESS -13.4 meq/l (-2-2); ARTERIAL BLOOD GAS PCO2 25.1 mmHg (35-45); ARTERIAL BLOOD GAS PO2 107 mmHg (80-100); ARTERIAL BLOOD GAS pH 7.29 (7.35-7.45)
[2019-11-15 07:37] LABS: ALLENS TEST POSITIVE
[2019-11-15 08:12] LABS: BASO % 0.3 % (0-2.0); HEMATOCRIT 43.2 % (35.4-49); HEMOGLOBIN 14.7 GM/dL (11.7-16.9); LYMPH % 21.3 % (8-40); MCH 30.1 pg (25.7-33.7); MCHC 33.9 g/dl (32.0-35.9); MEAN CELL VOLUME 88.7 fl (80-96); MONO % 7.5 % (3.8-10.2); NEUT % 70.9 % (42.8-82.8); PLATELET COUNT 209 K/MM3 (134-434); RBC 4.88 M/mm3 (4.00-5.60); RDW 12.8 % (11.9-15.9); WHITE BLOOD COUNT 11.5 K/mm3 (4.0-10.0)
[2019-11-15 08:39] LABS: BLOOD UREA NITROGEN 10.2 mg/dL (7-18); CALCIUM 8.1 mg/dL (8.5-10.1); CREATININE 0.9 mg/dL (0.55-1.3); POTASSIUM 4.7 mmol/L (3.5-5.1)
[2019-11-15] MEDS ORDERED: ACETAMINOPHEN 325 MG TABLET (FP) PO PRN (10:12)
[2019-11-15] MEDS: SODIUM CHLORIDE 0.45% 1,000 ML IV SCH ×3 (10:26→22:21)
--- NOTE | 2019-11-15 10:27 | PN ---
Physical Exam: SUBJECTIVE: Patient seen and examined at the bedside. Denies chest pain, denies shortness of breath. No further nausea or vomiting. States he does not have insurance and buying insulin has been expensive. OBJECTIVE: patient is a 24 year old male who has been diagnosed recently with diabetes. He presents to the ED with nausea/vomiting, lightheadness and chest pain. He was found to be in early onset DKA and placed on an insulin drip. Patient was initially given a loading dose of insulin in the emergency room and then briefly placed on insulin drip. Patient buys insulin Lantus, and injects 25 units in the a.m. He does not use a short acting insulin. He checks his blood sugars throughout the day and it is usually below 150 per patient. He ran out of insulin on Tuesday and since has been having malaise, nausea vomiting and elevated glucose in the 400s. He is awake, alert on exam, denies any further nausea/vomiting or chest pain. He is currently uninsured and buys his lantus from a relative. Vital Signs Period Temp Pulse Resp BP Sys/Gong Pulse Ox Last 24 Hr 98.1 F-99.2 F 96-107 17-22 101-121/49-66 99-100 GENERAL: The patient is awake, alert, and fully oriented, in no acute distress. HEAD: Normal with no signs of trauma. EYES: PERRL, extraocular movements intact, sclera anicteric, conjunctiva clear. No ptosis. ENT: Ears normal, nares patent, oropharynx clear without exudates, moist mucous membranes. NECK: Trachea midline, full range of motion, supple. LUNGS: Breath sounds equal, clear to auscultation bilaterally, no wheezes HEART: Regular rate and rhythm ABDOMEN: Soft, nontender, nondistended, normoactive bowel sounds EXTREMITIES: no edema. NEUROLOGICAL: Normal speech, gait not observed. PSYCH: Normal mood, normal affect. SKIN: multiple tattoos. Laboratory Results - last 24 hr 11/14/19 11/14/19 11/14/19 05:45 13:00 13:30 WBC RBC Hgb Hct MCV MCH MCHC RDW Plt Count MPV Absolute Neuts (auto) Neutrophils % Lymphocytes % Monocytes % Eosinophils % Basophils % Nucleated RBC % Anticoagulation Therapy No Result Required. Puncture Site Right radial ABG pH 7.29 L ABG pCO2 at Pt Temp 25.1 L ABG pO2 at Pt Temp 107 H ABG HCO3 11.6 L ABG O2 Sat (Measured) 98.0 ABG O2 Content 19.1 ABG Base Excess -13.4 L Carter Test Positive VBG pH POC VBG pCO2 POC VBG pO2 VBG HCO3 VBG O2 Sat (Soco) VBG Base Excess O2 Delivery Device Room air Oxygen Flow Rate 21% Vent Mode No Result Required. Vent Rate No Result Required. Mechanical Rate No Result Required. Pressure Support Vent No Result Required. Sodium Potassium Chloride Carbon Dioxide Anion Gap BUN Creatinine Est GFR (CKD-EPI)AfAm Est GFR (CKD-EPI)NonAf POC Glucometer 420 Random Glucose Lactic Acid Calcium Phosphorus Magnesium Total Bilirubin AST ALT Alkaline Phosphatase Creatine Kinase Troponin I Total Protein Albumin Beta-Hydroxybutyrate 72.2 H Urine Color Urine Appearance Urine pH Ur Specific [place] Urine Protein Urine Glucose (UA) Urine Ketones Urine Blood Urine Nitrite Urine Bilirubin Urine Urobilinogen Ur Leukocyte Esterase 11/14/19 11/14/19 11/14/19 13:30 13:30 13:30 WBC 5.3 RBC 5.36 Hgb 16.0 Hct 46.9 MCV 87.6 MCH 29.9 MCHC 34.1 RDW 12.6 Plt Count 205 MPV 8.7 Absolute Neuts (auto) 4.2 Neutrophils % 78.8 Lymphocytes % 16.7 Monocytes % 3.8 Eosinophils % 0.2 Basophils % 0.5 Nucleated RBC % 0 Anticoagulation Therapy Puncture Site ABG pH ABG pCO2 at Pt Temp ABG pO2 at Pt Temp ABG HCO3 ABG O2 Sat (Measured) ABG O2 Content ABG Base Excess Carter Test VBG pH 7.26 L POC VBG pCO2 34.2 L POC VBG pO2 63.6 H VBG HCO3 14.9 L VBG O2 Sat (Soco) 90.1 H VBG Base Excess -10.9 L O2 Delivery Device Oxygen Flow Rate Vent Mode Vent Rate Mechanical Rate Pressure Support Vent Sodium 137 Potassium 4.8 Chloride 104 Carbon Dioxide 16 L Anion Gap 17 H BUN 17.1 Creatinine 1.0 Est GFR (CKD-EPI)AfAm 122.41 Est GFR (CKD-EPI)NonAf 105.62 POC Glucometer Random Glucose 395 H Lactic Acid Calcium 8.7 Phosphorus Magnesium 1.6 L Total Bilirubin 1.2 H AST 14 L ALT 20 Alkaline Phosphatase 66 Creatine Kinase 88 Troponin I < 0.02 Total Protein 6.3 L Albumin 3.6 Beta-Hydroxybutyrate Urine Color Urine Appearance Urine pH Ur Specific [place] Urine Protein Urine Glucose (UA) Urine Ketones Urine Blood Urine Nitrite Urine Bilirubin Urine Urobilinogen Ur Leukocyte Esterase 11/14/19 11/14/19 11/14/19 13:30 13:50 15:14 WBC RBC Hgb Hct MCV MCH MCHC RDW Plt Count MPV Absolute Neuts (auto) Neutrophils % Lymphocytes % Monocytes % Eosinophils % Basophils % Nucleated RBC % Anticoagulation Therapy Puncture Site ABG pH ABG pCO2 at Pt Temp ABG pO2 at Pt Temp ABG HCO3 ABG O2 Sat (Measured) ABG O2 Content ABG Base Excess Carter Test VBG pH POC VBG pCO2 POC VBG pO2 VBG HCO3 VBG O2 Sat (Soco) VBG Base Excess O2 Delivery Device Oxygen Flow Rate Vent Mode Vent Rate Mechanical Rate Pressure Support Vent Sodium Potassium Chloride Carbon Dioxide Anion Gap BUN Creatinine Est GFR (CKD-EPI)AfAm Est GFR (CKD-EPI)NonAf POC Glucometer 388 Random Glucose Lactic Acid 1.7 Calcium Phosphorus Magnesium Total Bilirubin AST ALT Alkaline Phosphatase Creatine Kinase Troponin I Total Protein Albumin Beta-Hydroxybutyrate Urine Color Yellow Urine Appearance Clear Urine pH 5.0 Ur Specific [place] 1.039 H Urine Protein Negative Urine Glucose (UA) 3+ H Urine Ketones 4+ H Urine Blood Negative Urine Nitrite Negative Urine Bilirubin Negative Urine Urobilinogen 0.2 Ur Leukocyte Esterase Negative 11/14/19 11/14/19 11/14/19 16:18 17:38 17:39 WBC RBC Hgb Hct MCV MCH MCHC RDW Plt Count MPV Absolute Neuts (auto) Neutrophils % Lymphocytes % Monocytes % Eosinophils % Basophils % Nucleated RBC % Anticoagulation Therapy Puncture Site ABG pH ABG pCO2 at Pt Temp ABG pO2 at Pt Temp ABG HCO3 ABG O2 Sat (Measured) ABG O2 Content ABG Base Excess Carter Test VBG pH POC VBG pCO2 POC VBG pO2 VBG HCO3 VBG O2 Sat (Soco) VBG Base Excess O2 Delivery Device Oxygen Flow Rate Vent Mode Vent Rate Mechanical Rate Pressure Support Vent Sodium Potassium Chloride Carbon Dioxide Anion Gap BUN Creatinine Est GFR (CKD-EPI)AfAm Est GFR (CKD-EPI)NonAf POC Glucometer 382 452 423 Random Glucose Lactic Acid Calcium Phosphorus Magnesium Total Bilirubin AST ALT Alkaline Phosphatase Creatine Kinase Troponin I Total Protein Albumin Beta-Hydroxybutyrate Urine Color Urine Appearance Urine pH Ur Specific [place] Urine Protein Urine Glucose (UA) Urine Ketones Urine Blood Urine Nitrite Urine Bilirubin Urine Urobilinogen Ur Leukocyte Esterase 11/14/19 11/14/19 11/14/19 19:15 19:17 20:33 WBC RBC Hgb Hct MCV MCH MCHC RDW Plt Count MPV Absolute Neuts (auto) Neutrophils % Lymphocytes % Monocytes % Eosinophils % Basophils % Nucleated RBC % Anticoagulation Therapy Puncture Site ABG pH ABG pCO2 at Pt Temp ABG pO2 at Pt Temp ABG HCO3 ABG O2 Sat (Measured) ABG O2 Content ABG Base Excess Carter Test VBG pH POC VBG pCO2 POC VBG pO2 VBG HCO3 VBG O2 Sat (Soco) VBG Base Excess O2 Delivery Device Oxygen Flow Rate Vent Mode Vent Rate Mechanical Rate Pressure Support Vent Sodium 138 Potassium 4.4 Chloride 110 H Carbon Dioxide 14 L Anion Gap 15 BUN 16.4 Creatinine 1.2 Est GFR (CKD-EPI)AfAm 98.19 Est GFR (CKD-EPI)NonAf 84.72 POC Glucometer 358 262 Random Glucose 362 H Lactic Acid Calcium 8.2 L Phosphorus Magnesium Total Bilirubin AST ALT Alkaline Phosphatase Creatine Kinase Troponin I < 0.02 Total Protein Albumin Beta-Hydroxybutyrate Urine Color Urine Appearance Urine pH Ur Specific [place] Urine Protein Urine Glucose (UA) Urine Ketones Urine Blood Urine Nitrite Urine Bilirubin Urine Urobilinogen Ur Leukocyte Esterase 11/14/19 11/14/19 11/14/19 21:23 23:43 23:58 WBC RBC Hgb Hct MCV MCH MCHC RDW Plt Count MPV Absolute Neuts (auto) Neutrophils % Lymphocytes % Monocytes % Eosinophils % Basophils % Nucleated RBC % Anticoagulation Therapy Puncture Site ABG pH ABG pCO2 at Pt Temp ABG pO2 at Pt Temp ABG HCO3 ABG O2 Sat (Measured) ABG O2 Content ABG Base Excess Carter Test VBG pH POC VBG pCO2 POC VBG pO2 VBG HCO3 VBG O2 Sat (Soco) VBG Base Excess O2 Delivery Device Oxygen Flow Rate Vent Mode Vent Rate Mechanical Rate Pressure Support Vent Sodium 139 Potassium 5.0 Chloride 112 H Carbon Dioxide 17 L Anion Gap 11 BUN 11.6 Creatinine 0.9 Est GFR (CKD-EPI)AfAm 139.04 Est GFR (CKD-EPI)NonAf 119.96 POC Glucometer 212 222 Random Glucose 229 H Lactic Acid Calcium 8.0 L Phosphorus 2.8 Magnesium 1.6 L Total Bilirubin AST ALT Alkaline Phosphatase Creatine Kinase Troponin I Total Protein Albumin Beta-Hydroxybutyrate Urine Color Urine Appearance Urine pH Ur Specific [place] Urine Protein Urine Glucose (UA) Urine Ketones Urine Blood Urine Nitrite Urine Bilirubin Urine Urobilinogen Ur Leukocyte Esterase 11/15/19 11/15/19 11/15/19 03:40 06:36 06:45 WBC 11.5 H RBC 4.88 Hgb 14.7 Hct 43.2 MCV 88.7 MCH 30.1 MCHC 33.9 RDW 12.8 Plt Count 209 MPV 9.0 Absolute Neuts (auto) 8.2 H Neutrophils % 70.9 Lymphocytes % 21.3 D Monocytes % 7.5 D Eosinophils % 0.0 D Basophils % 0.3 Nucleated RBC % 0 Anticoagulation Therapy Puncture Site ABG pH ABG pCO2 at Pt Temp ABG pO2 at Pt Temp ABG HCO3 ABG O2 Sat (Measured) ABG O2 Content ABG Base Excess Carter Test VBG pH POC VBG pCO2 POC VBG pO2 VBG HCO3 VBG O2 Sat (Soco) VBG Base Excess O2 Delivery Device Oxygen Flow Rate Vent Mode Vent Rate Mechanical Rate Pressure Support Vent Sodium Potassium Chloride Carbon Dioxide Anion Gap BUN Creatinine Est GFR (CKD-EPI)AfAm Est GFR (CKD-EPI)NonAf POC Glucometer 252 221 Random Glucose Lactic Acid Calcium Phosphorus Magnesium Total Bilirubin AST ALT Alkaline Phosphatase Creatine Kinase Troponin I Total Protein Albumin Beta-Hydroxybutyrate Urine Color Urine Appearance Urine pH Ur Specific [place] Urine Protein Urine Glucose (UA) Urine Ketones Urine Blood Urine Nitrite Urine Bilirubin Urine Urobilinogen Ur Leukocyte Esterase 11/15/19 06:45 WBC RBC Hgb Hct MCV MCH MCHC RDW Plt Count MPV Absolute Neuts (auto) Neutrophils % Lymphocytes % Monocytes % Eosinophils % Basophils % Nucleated RBC % Anticoagulation Therapy Puncture Site ABG pH ABG pCO2 at Pt Temp ABG pO2 at Pt Temp ABG HCO3 ABG O2 Sat (Measured) ABG O2 Content ABG Base Excess Carter Test VBG pH POC VBG pCO2 POC VBG pO2 VBG HCO3 VBG O2 Sat (Soco) VBG Base Excess O2 Delivery Device Oxygen Flow Rate Vent Mode Vent Rate Mechanical Rate Pressure Support Vent Sodium 138 Potassium 4.7 Chloride 110 H Carbon Dioxide 14 L Anion Gap 14 BUN 10.2 Creatinine 0.9 Est GFR (CKD-EPI)AfAm 139.04 Est GFR (CKD-EPI)NonAf 119.96 POC Glucometer Random Glucose 250 H Lactic Acid Calcium 8.1 L Phosphorus Magnesium Total Bilirubin AST ALT Alkaline Phosphatase Creatine Kinase Troponin I Total Protein Albumin Beta-Hydroxybutyrate Urine Color Urine Appearance Urine pH Ur Specific [place] Urine Protein Urine Glucose (UA) Urine Ketones Urine Blood Urine Nitrite Urine Bilirubin Urine Urobilinogen Ur Leukocyte Esterase Active Medications Generic Name Dose Route Start Last Admin Trade Name Freq PRN Reason Stop Dose Admin Acetaminophen 650 mg 11/15/19 10:12 Tylenol - PO Q6H PRN PAIN LEVEL 4 - 6 Enoxaparin Sodium 40 mg 11/15/19 10:00 Lovenox - SQ DAILY [facility] Sodium Chloride 1,000 mls @ 200 mls/hr 11/15/19 01:45 1/2 Normal Saline IV ASDIR [facility] Insulin Aspart 1 vial 11/15/19 10:17 Novolog Vial Sliding Scale - SQ ACHS [facility] Protocol Insulin Detemir 10 units 11/15/19 22:00 Levemir Vial SQ HS [facility] ASSESSMENT/PLAN: Problem List - Problems (1) Diabetes Assessment/Plan: patient non compliance with insulin secondary to insurance limitations. purchases lantus from a relative. now comes in with early on sent dka, nausea/vomiting start on novolog ss with tighter control, will give another 10 units of levemir and start on diabetic diet anion gap closed will order cmp q 6 to assure gap remains closed endocrinology consulted Code(s): E11.9 - TYPE 2 DIABETES MELLITUS WITHOUT COMPLICATIONS (2) DKA (diabetic ketoacidoses) Assessment/Plan: DKA is resolved, anion gap initially 17, now within normal limits beta hb 72 serum glucose 280s ua with 4+ ketones/3+ glucose hmag a1c 12.8 continue levemir 10 at hs continue ivf hydration Code(s): E11.10 - TYPE 2 DIABETES MELLITUS WITH KETOACIDOSIS WITHOUT COMA (3) Abdominal pain Assessment/Plan: resolved, no further nausea or vomiting Code(s): R10.9 - UNSPECIFIED ABDOMINAL PAIN (4) Hyperglycemia Code(s): R73.9 - HYPERGLYCEMIA, UNSPECIFIED (5) Nausea vomiting and diarrhea Assessment/Plan: resolved Code(s): R11.2 - NAUSEA WITH VOMITING, UNSPECIFIED; R19.7 - DIARRHEA, UNSPECIFIED (6) DVT prophylaxis Assessment/Plan: on lovenox Code(s): Z29.9 - ENCOUNTER FOR PROPHYLACTIC MEASURES, UNSPECIFIED Visit type - Emergency Visit Emergency Visit: Yes ED Registration Date: 11/14/19 Care time: The patient presented to the Emergency Department on the above date and was hospitalized for further evaluation of their emergent condition. - New Patient This patient is new to me today: Yes Date on this admission: 11/15/19 - Critical Care Critical Care patient: No - Discharge Referral Referred to [facility] No
[2019-11-15] MEDS: ENOXAPARIN NA (PORCINE) 40 MG/0.4 ML DISP.SYRIN SQ SCH (10:28)
[2019-11-15] MEDS ORDERED: INSULIN (NOVOLOG) ASPART 100 UNITS/ML 10ML VIAL ONE (11:35)
[2019-11-15] MEDS: INSULIN SLIDING SCALE (NOVOLOG) 1 VIAL SQ SCH ×3 (11:41→22:20)
[2019-11-15 12:11] LABS: MAGNESIUM 1.6 mg/dL (1.8-2.4)
[2019-11-15] MEDS ORDERED: MAGNESIUM OXIDE 400 MG TABLET (FP) PO ONE (12:20)
[2019-11-15 13:58] LABS: ALBUMIN 2.8 g/dl (3.4-5.0); BILIRUBIN,TOTAL 0.7 mg/dL (0.2-1); BLOOD UREA NITROGEN 8.9 mg/dL (7-18); CALCIUM 7.9 mg/dL (8.5-10.1); CREATININE 0.9 mg/dL (0.55-1.3); POTASSIUM 4.3 mmol/L (3.5-5.1)
--- NOTE | 2019-11-15 14:04 | EKG ---
Test Reason : Blood Pressure : / mmHG Vent. Rate : 102 BPM Atrial Rate : 102 BPM P-R Int : 124 ms QRS Dur : 088 ms QT Int : 348 ms P-R-T Axes : 079 078 046 degrees QTc Int : 453 ms SINUS TACHYCARDIA POSSIBLE LEFT ATRIAL ENLARGEMENT BORDERLINE ECG NO PREVIOUS ECGS AVAILABLE Confirmed by PINA LEMONS MD ([id number]) on 11/15/2019 2:04:01 PM Referred By: Confirmed By:PINA LEMONS MD
[2019-11-15 17:05] LABS: URINE APPEARANCE CLEAR; URINE BILIRUBIN NEGATIVE (NEGATIVE); URINE COLOR YELLOW; URINE GLUCOSE (UA) 3+ (NEGATIVE); URINE KETONE TRACE (NEGATIVE); URINE LEUK ESTERASE NEGATIVE (NEGATIVE); URINE NITRITE NEGATIVE (NEGATIVE); URINE PROTEIN NEGATIVE (NEGATIVE)
[2019-11-15 20:42] LABS: ALBUMIN 2.8 g/dl (3.4-5.0); BILIRUBIN,TOTAL 0.6 mg/dL (0.2-1); CALCIUM 8.3 mg/dL (8.5-10.1); CREATININE 1.1 mg/dL (0.55-1.3); POTASSIUM 4.1 mmol/L (3.5-5.1); TOT PROT 5.4 g/dl (6.4-8.2)
[2019-11-15] MEDS ORDERED: INSULIN (LEVEMIR) 100 UNITS/ML UNITS SQ SCH (22:00)
[2019-11-15] MEDS: MAGNESIUM OXIDE 400 MG TABLET (FP) PO SCH (22:21)
[2019-11-16] MEDS: INSULIN SLIDING SCALE (NOVOLOG) 1 VIAL SQ SCH (06:31)
--- NOTE | 2019-11-16 08:58 | CONSULT ---
Consult Consult Specialty:: Endocrinology Referred by:: Terri Escoto NP Reason for Consultation:: Hyperglycemia - History of Present Illness Chief Complaint: Hyperglycemia History of Present Illness: This is a 24 y.o. M with T1DM diagnosed at age 13 presenting for hyperglycemia. The patient buys his diabetic medications from the [place] (takes 25U Lantus daily and 3U aspart before meals) but ran out of lantus on Tuesday (11/12/2019). He does not follow up with a PCP but says he has been buying his own insulin and using it based on his fingersticks at home, which he takes regularly. The morining of admission he noticed his BGM was 420's. He has been nauseous since 11/11 and has 1 episode NBNB emesis on 11/12. No recent changes in diet or exercise regimen. FS at home 200s. No recent hypoglycemic symptoms. In E R found to have serum glucose 362, fingerstick 420, B-hydroxybutyrate 72, anion gap 17. Pt treated with Insulin with resolution of DKA and improvement in blood sugar - History Source History Provided By: Patient, Medical Record - Past Medical History Endocrine: Yes: Diabetes Mellitus (On insulin) - Alcohol/Substance Use Hx Alcohol Use: No - Smoking History Smoking history: Never smoked Have you smoked in the past 12 months: No Home Medications - Allergies Allergies/Adverse Reactions: Allergies Allergy/AdvReac Type Severity Reaction Status Date / Time No Known Allergies Allergy Verified 11/15/19 11:19 - Home Medications Home Medications: Ambulatory Orders Insulin Glargine,Hum.rec.anlog [Basaglar Kwikpen U-100] 35 unit SQ HS 04/24/19 Insulin Lispro [Humalog] 0 unit SQ ASDIR PRN 04/24/19 Famotidine [Pepcid] 20 mg PO BID 14 Days #28 tablet 10/09/19 Alcohol Antiseptic Pads [Alcohol Prep Pad] 1 each TP ACHS #100 med..pad 11/16/19 Insulin (Levemir) [Levemir Vial] 10 unit SQ HS #1 vial 11/16/19 Insulin (Novolog) [Novolog Vial] 4 units SQ ACHS #2 vial 11/16/19 Miscellaneous Medical Supply [Glucometer Device] 1 each SQ ASDIR #1 kit 11/16/19 Miscellaneous Medical Supply [Glucometer Test Strips #100] 1 each SQ ACHS #180 ea 11/16/19 [place], Safety [Easy Touch Fliplock Needle] 1 each MC ACHS #100 dis.needle 11/16/19 Family Medical History Family Hx Diabetes: Grandmother (maternal) Review of Systems - Review of Systems Constitutional: reports: No Symptoms Eyes: reports: No Symptoms HENT: reports: No Symptoms Neck: reports: No Symptoms Cardiovascular: reports: No Symptoms Respiratory: reports: No Symptoms Gastrointestinal: reports: No Symptoms Genitourinary: reports: No Symptoms Integumentary: reports: No Symptoms Neurological: reports: No Symptoms Endocrine: reports: No Symptoms Hematology/Lymphatic: reports: No Symptoms Physical Exam Vital Signs: Vital Signs Temperature 98 F 11/16/19 07:31 Pulse Rate 65 11/16/19 07:31 Respiratory Rate 18 11/16/19 07:31 Blood Pressure 105/50 L 11/16/19 07:31 O2 Sat by Pulse Oximetry (%) 100 11/15/19 22:00 Constitutional: Yes: No Distress, Calm Eyes: Yes: Conjunctiva Clear, EOM Intact HENT: Yes: Atraumatic, Normocephalic Neck: Yes: Supple, Trachea Midline Cardiovascular: Yes: Regular Rate and Rhythm Respiratory: Yes: Regular, CTA Bilaterally Gastrointestinal: Yes: Normal Bowel Sounds, Soft Musculoskeletal: Yes: WNL Extremities: Yes: WNL Edema: No Labs: CBC, BMP 11/15/19 06:45 11/15/19 20:00 Assessment/Plan AP: T1DM DKA sec to noncompliance with Insulin Diet exercise discussed Diabetes education Discussed need to take Insulin daily as prescribed to prevent further episodes of DKA Levevir 10 Novolog SS coverage Nutrition consult
[2019-11-16 09:52] VITALS: BP 111/60; PULSE 81; TEMP 98.2
[2019-11-16] MEDS: MAGNESIUM OXIDE 400 MG TABLET (FP) PO SCH (09:54)
[2019-11-16] MEDS: SODIUM CHLORIDE 0.45% 1,000 ML IV SCH (09:54)
[2019-11-16] MEDS: ENOXAPARIN NA (PORCINE) 40 MG/0.4 ML DISP.SYRIN SQ SCH (09:54)
[2019-11-16] MEDS ORDERED: INSULIN SLIDING SCALE (NOVOLOG) 1 VIAL SQ SCH ×2 (11:00→22:00)
[2019-11-16 11:33] LABS: BASO % 0.4 % (0-2.0); EOS % 0.7 % (0-4.5); HEMATOCRIT 41.4 % (35.4-49); HEMOGLOBIN 14.4 GM/dL (11.7-16.9); LYMPH % 34.8 % (8-40); MCHC 34.7 g/dl (32.0-35.9); MEAN CELL VOLUME 86.5 fl (80-96); MEAN PLT VOLUME 8.7 fl (7.5-11.1); MONO % 10.2 % (3.8-10.2); NEUT % 53.9 % (42.8-82.8); PLATELET COUNT 175 K/MM3 (134-434); RBC 4.79 M/mm3 (4.00-5.60); RDW 12.6 % (11.9-15.9); WHITE BLOOD COUNT 4.1 K/mm3 (4.0-10.0)
[2019-11-16] MEDS ORDERED: INSULIN (NOVOLOG) ASPART 100 UNITS/ML 10ML VIAL ONE (11:40)
[2019-11-16 12:11] LABS: ALBUMIN 2.7 g/dl (3.4-5.0); BILIRUBIN,TOTAL 0.4 mg/dL (0.2-1); BLOOD UREA NITROGEN 7.2 mg/dL (7-18); CREATININE 0.8 mg/dL (0.55-1.3); POTASSIUM 3.6 mmol/L (3.5-5.1)
--- NOTE | 2019-11-16 12:50 | DS ---
Physical Exam: SUBJECTIVE: Patient seen and examined at the bedside. patient verbalizes understanding of importance of controlling his blood sugars at home. He is accepting of using a sliding scale as well as the long acting insulin. informed him that we have worked with our affiliated pharmacy, [facility] and they will provide him with both the long acting and short acting insulin free of change, he would need to still pay for the needles and equipment for apx $100. Patient agrees. Also informed him that a new PCP appointment has been made for him as follows: Date: November 18 Time: 2:45pm Doctor: MD Usman Place [address] [place] [address] OBJECTIVE: patient is a 24 year old male who has been diagnosed recently with diabetes. He presents to the ED with nausea/vomiting, lightheadness and chest pain. He was found to be in early onset DKA and placed on an insulin drip. Patient was initially given a loading dose of insulin in the emergency room and then briefly placed on insulin drip. Patient buys insulin Lantus from a relative, and injects 25 units in the a.m. He does not use a short acting insulin. He checks his blood sugars throughout the day and it is usually below 150 per patient. He ran out of insulin on Tuesday and since has been having malaise, nausea vomiting and elevated glucose in the 400s. He is awake, alert on exam, denies any further nausea/vomiting or chest pain. He is currently uninsured and pays for all his medications out of pocket. [facility] pharmacy to provide patient with a long acting and short acting insulin free of charge, patient to pay for the supplies (est $100). patient agrees. Patient also agrees to outpt follow up at [facility] on November 18. All questions answered, patient to be discharged today. Vital Signs Period Temp Pulse Resp BP Sys/Gong Pulse Ox Last 24 Hr 98 F-98.5 F 65-87 15-20 101-139/50-73 100-100 PHYSICAL EXAM GENERAL: The patient is awake, alert, and fully oriented, in no acute distress. HEAD: Normal with no signs of trauma. EYES: PERRL, extraocular movements intact, sclera anicteric, conjunctiva clear. No ptosis. ENT: Ears normal, nares patent, oropharynx clear without exudates, moist mucous membranes. NECK: Trachea midline, full range of motion, supple. LUNGS: Breath sounds equal, clear to auscultation bilaterally, no wheezes HEART: Regular rate and rhythm ABDOMEN: Soft, nontender, nondistended, normoactive bowel sounds EXTREMITIES: no edema. NEUROLOGICAL: Normal speech, gait not observed. PSYCH: Normal mood, normal affect. SKIN: multiple tattoos. LABS Laboratory Results - last 24 hr 11/15/19 11/15/19 11/15/19 11:03 16:40 16:57 WBC RBC Hgb Hct MCV MCH MCHC RDW Plt Count MPV Absolute Neuts (auto) Neutrophils % Lymphocytes % Monocytes % Eosinophils % Basophils % Nucleated RBC % Sodium 136 Potassium 4.3 Chloride 109 H Carbon Dioxide 18 L Anion Gap 10 BUN 8.9 Creatinine 0.9 Est GFR (CKD-EPI)AfAm 139.04 Est GFR (CKD-EPI)NonAf 119.96 POC Glucometer 293 Random Glucose 265 H Calcium 7.9 L Magnesium 1.6 L Total Bilirubin 0.7 AST 11 L ALT 15 Alkaline Phosphatase 54 Total Protein 5.0 L Albumin 2.8 L Urine Color Yellow Urine Appearance Clear Urine pH 6.0 Ur Specific [place] 1.027 Urine Protein Negative Urine Glucose (UA) 3+ H Urine Ketones Trace H Urine Blood Negative Urine Nitrite Negative Urine Bilirubin Negative Urine Urobilinogen 1.0 Ur Leukocyte Esterase Negative 11/15/19 11/15/19 11/16/19 20:00 22:17 01:17 WBC RBC Hgb Hct MCV MCH MCHC RDW Plt Count MPV Absolute Neuts (auto) Neutrophils % Lymphocytes % Monocytes % Eosinophils % Basophils % Nucleated RBC % Sodium 138 Potassium 4.1 Chloride 106 Carbon Dioxide 28 Anion Gap 4 L BUN 12.0 Creatinine 1.1 Est GFR (CKD-EPI)AfAm 109.09 Est GFR (CKD-EPI)NonAf 94.12 POC Glucometer 308 156 Random Glucose 264 H Calcium 8.3 L Magnesium Total Bilirubin 0.6 AST 10 L ALT 17 Alkaline Phosphatase 56 Total Protein 5.4 L Albumin 2.8 L Urine Color Urine Appearance Urine pH Ur Specific [place] Urine Protein Urine Glucose (UA) Urine Ketones Urine Blood Urine Nitrite Urine Bilirubin Urine Urobilinogen Ur Leukocyte Esterase 11/16/19 11/16/19 11/16/19 06:27 10:48 10:50 WBC 4.1 RBC 4.79 Hgb 14.4 Hct 41.4 MCV 86.5 MCH 30.0 MCHC 34.7 RDW 12.6 Plt Count 175 MPV 8.7 Absolute Neuts (auto) 2.2 Neutrophils % 53.9 D Lymphocytes % 34.8 D Monocytes % 10.2 Eosinophils % 0.7 D Basophils % 0.4 Nucleated RBC % 0 Sodium Potassium Chloride Carbon Dioxide Anion Gap BUN Creatinine Est GFR (CKD-EPI)AfAm Est GFR (CKD-EPI)NonAf POC Glucometer 159 153 Random Glucose Calcium Magnesium Total Bilirubin AST ALT Alkaline Phosphatase Total Protein Albumin Urine Color Urine Appearance Urine pH Ur Specific [place] Urine Protein Urine Glucose (UA) Urine Ketones Urine Blood Urine Nitrite Urine Bilirubin Urine Urobilinogen Ur Leukocyte Esterase 11/16/19 11/16/19 10:50 11:53 WBC RBC Hgb Hct MCV MCH MCHC RDW Plt Count MPV Absolute Neuts (auto) Neutrophils % Lymphocytes % Monocytes % Eosinophils % Basophils % Nucleated RBC % Sodium 140 Potassium 3.6 Chloride 106 Carbon Dioxide 28 Anion Gap 7 L BUN 7.2 Creatinine 0.8 Est GFR (CKD-EPI)AfAm 145.93 Est GFR (CKD-EPI)NonAf 125.91 POC Glucometer 222 Random Glucose 153 H Calcium 8.0 L Magnesium Total Bilirubin 0.4 AST 16 ALT 17 Alkaline Phosphatase 52 Total Protein 5.0 L Albumin 2.7 L Urine Color Urine Appearance Urine pH Ur Specific [place] Urine Protein Urine Glucose (UA) Urine Ketones Urine Blood Urine Nitrite Urine Bilirubin Urine Urobilinogen Ur Leukocyte Esterase HOSPITAL COURSE: Date of Admission:11/14/19 Date of Discharge: 11/16/19 Minutes to complete discharge: 45 Discharge Summary Problems reviewed: Yes Reason For Visit: DIABETIC KETOACIDOSIS Current Active Problems DKA (diabetic ketoacidoses) (Acute) DVT prophylaxis (Acute) Diabetes (Acute) Condition: Stable - Instructions Diet, Activity, Other Instructions: Mr Hernandez. You were admitted for high blood sugars, nausea and vomiting. Here are our discharge instructions. You will need 2 insulins. One called Novolog which is a short acting insulin that you take before each meal and at bedtime. The other insulin is called Levemir, it is a long acting basal insulin that you take once at bedtime. Please Follow this sliding scale for the NOVOLOG (SHORT ACTING) If your blood sugar is 101-150 do not give your self any insulin 151-200 give yourself 4 units 201-250 give yourself 6 units 251-300 give yourself 8 units 301-250 give yourself 10 units 351-400 give yourself 12 units at BEDTIME, please give your self Levemir 10 units. It is important that you follow up with a primary care doctor. An appointment has been made for you. Date: November 18 Time: 2:45pm Doctor: Usman Castillo [address] [place] [address] Please bring all your medications and discharge paper work to this appointment. Referrals: [facility] [place] [Provider Group] ($[phone]. dr. river november 13 tuesday at 2:45PM. ) Marlon Barrow MD [Staff Physician] - Disposition: HOME - Home Medications Comprehensive Discharge Medication List: Ambulatory Orders Insulin Glargine,Hum.rec.anlog [Basaglar Kwikpen U-100] 35 unit SQ HS 04/24/19 Insulin Lispro [Humalog] 0 unit SQ ASDIR PRN 04/24/19 Famotidine [Pepcid] 20 mg PO BID 14 Days #28 tablet 10/09/19 Alcohol Antiseptic Pads [Alcohol Prep Pad] 1 each TP ACHS #100 med..pad 11/16/19 Insulin (Levemir) [Levemir Vial] 10 unit SQ HS #1 vial 11/16/19 Insulin (Novolog) [Novolog Vial] 4 units SQ ACHS #2 vial 11/16/19 Miscellaneous Medical Supply [Glucometer Device] 1 each SQ ASDIR #1 kit 11/16/19 Miscellaneous Medical Supply [Glucometer Test Strips #100] 1 each SQ ACHS #180 ea 11/16/19 [place], Safety [Easy Touch Fliplock Needle] 1 each ACHS #100 dis.needle 11/16/19 Problem List - Problems (1) Diabetes Assessment/Plan: patient non compliance with insulin secondary to insurance limitations. purchases lantus from a relative. now comes in with early on sent dka, nausea/vomiting During hospital stay, patient was started on Novolog sliding scale and Levemir 10 units at hs. His blood sugars improved and his anion gap closed. Patient was seen and evaluated by senior office assistant during stay. He has been taught how to use a sliding scale and adminiter the short acting insulin. A new PCP appointment was set up for him prior to discharge home. Code(s): E11.9 - TYPE 2 DIABETES MELLITUS WITHOUT COMPLICATIONS (2) DKA (diabetic ketoacidoses) Assessment/Plan: DKA is resolved, anion gap initially 17, now within normal limits Code(s): E11.10 - TYPE 2 DIABETES MELLITUS WITH KETOACIDOSIS WITHOUT COMA (3) Abdominal pain Assessment/Plan: resolved, no further nausea or vomiting Code(s): R10.9 - UNSPECIFIED ABDOMINAL PAIN (4) Hyperglycemia Code(s): R73.9 - HYPERGLYCEMIA, UNSPECIFIED (5) Nausea vomiting and diarrhea Assessment/Plan: resolved Code(s): R11.2 - NAUSEA WITH VOMITING, UNSPECIFIED; R19.7 - DIARRHEA, UNSPECIFIED (6) DVT prophylaxis Assessment/Plan: on lovenox Code(s): Z29.9 - ENCOUNTER FOR PROPHYLACTIC MEASURES, UNSPECIFIED This patient is new to me today: No Emergency Visit: Yes ED Registration Date: 11/14/19 Care time: The patient presented to the Emergency Department on the above date and was hospitalized for further evaluation of their emergent condition. Critical Care patient: No - Discharge Referral Referred to [facility] No
== END 2019-11-16 14:20 | disposition home or self-care (01) | DRG 420 ==
LOC: JER 12:47 → JERBED 21:43 → J8W 11-15 01:14
PROVIDERS: ADMIT Internal Medicine; ATTEND Nurse Practitioner Family
DX: E10.10 Type 1 diabetes mellitus with ketoacidosis without coma (principal); Z79.4 Long term (current) use of insulin; R10.9 Unspecified abdominal pain; R11.2 Nausea with vomiting, unspecified; Z91.14 Patient's other noncompliance with medication regimen
CPT/HCPCS: 36415; 36600; 71045-TC-FY; 80048; 80053; 81003; 82010; 82550; 82803; 82962; 83036; 83605; 83735; 84100; 84484; 85025; 93005; 93010; 97116-GP; 97161-GP; 99285-25; J0131; J7030

== ENCOUNTER 2020-10-04 00:59 | Emergency (ER) | payer OTHER ==
[2020-10-04] MEDS ORDERED: SODIUM CHLORIDE 1,000 ML IV SCH (01:30)
[2020-10-04 01:35] VITALS: BP 136/77; PULSE 95; TEMP 98.6; BMI 23.3
[2020-10-04 02:06] LABS: BASO % 0.7 % (0-2.0); EOS % 0.4 % (0-4.5); HEMATOCRIT 49.5 % (35.4-49); LYMPH % 35.5 % (8-40); MCHC 34.4 g/dl (32.0-35.9); MEAN CELL VOLUME 87.4 fl (80-96); MEAN PLT VOLUME 8.8 fl (7.5-11.1); MONO % 8.8 % (3.8-10.2); NEUT % 54.6 % (42.8-82.8); PLATELET COUNT 245 K/MM3 (134-434); RBC 5.66 M/mm3 (4.00-5.60); WHITE BLOOD COUNT 5.1 K/mm3 (4.0-10.0)
[2020-10-04 02:23] LABS: CHLORIDE 100 mmol/L (98-107); POTASSIUM 4.6 mmol/L (3.5-5.1); SODIUM 136 mmol/L (136-145)
[2020-10-04 02:25] LABS: ALBUMIN 4.4 g/dl (3.4-5.0); ANION GAP 10 MMOL/L (8-16); BLOOD UREA NITROGEN 17.2 mg/dL (7-18); CO2 25 mmol/L (21-32)
[2020-10-04 02:26] LABS: GLUCOSE,RANDOM 348 mg/dL (74-106)
[2020-10-04 02:28] LABS: SGOT/AST 10 U/L (15-37); SGPT/ALT 24 U/L (13-61); VENOUS BASE EXCESS -1.1 mmol/L (-2-2); VENOUS O2 SATURATION 49.9 % (70-80); VENOUS PCO2 41.1 mmHg (38-52); VENOUS PH 7.383 (7.310-7.410)
[2020-10-04 02:29] LABS: CREATININE 1.1 mg/dL (0.55-1.3)
[2020-10-04 02:31] LABS: ALK PHOS 75 U/L (45-117); BILIRUBIN,TOTAL 0.6 mg/dL (0.2-1); TOT PROT 7.7 g/dl (6.4-8.2)
== END 2020-10-04 04:23 | disposition home or self-care (01) ==
LOC: JER 00:59
DX: R73.9 Hyperglycemia, unspecified (principal)
CPT/HCPCS: 36415; 71045-TC-FY; 80053; 82010; 82803; 82962; 84484; 84702; 85025; 93005; 93010; 99285-25

== ENCOUNTER 2021-02-09 06:57 | Inpatient (IN) | payer OTHER ==
[2021-02-09] MEDS ORDERED: SODIUM CHLORIDE 0.9% 1000 ML INFUS.BAG IV ONE ×2 (07:31→07:36)
[2021-02-09] MEDS ORDERED: ONDANSETRON 4 MG/2 ML VIAL IVPUSH ONE (07:36)
[2021-02-09] MEDS ORDERED: FAMOTIDINE 20 MG/50 ML IVPB 20 MG/50 ML MG IVPB ONE ×2 (07:36→07:50)
[2021-02-09] MEDS ORDERED: ONDANSETRON 4 MG/2 ML VIAL ONE (07:39)
[2021-02-09 07:47] LABS: BASO % 0.4 % (0-2.0); EOS % 0.4 % (0-4.5); HEMATOCRIT 49.4 % (35.4-49); HEMOGLOBIN 16.9 GM/dL (11.7-16.9); LYMPH % 28.5 % (8-40); MCH 30.8 pg (25.7-33.7); MCHC 34.2 g/dl (32.0-35.9); MEAN PLT VOLUME 9.4 fl (7.5-11.1); NEUT % 63.7 % (42.8-82.8); PLATELET COUNT 239 K/MM3 (134-434); RBC 5.49 M/mm3 (4.00-5.60); RDW 12.9 % (11.9-15.9); WHITE BLOOD COUNT 7.9 K/mm3 (4.0-10.0)
[2021-02-09 08:00] LABS: INR 0.89 (0.83-1.09)
[2021-02-09 08:02] LABS: ACTIVATED PTT 25.4 SECONDS (25.2-36.5)
[2021-02-09 08:03] LABS: CHLORIDE 90 mmol/L (98-107); SODIUM 130 mmol/L (136-145)
[2021-02-09 08:06] LABS: ALBUMIN 4.8 g/dl (3.4-5.0); ANION GAP 23 MMOL/L (8-16); BLOOD UREA NITROGEN 21.2 mg/dL (7-18); CALCIUM 10.2 mg/dL (8.5-10.1); CO2 17 mmol/L (21-32)
[2021-02-09 08:09] LABS: CREATININE 1.4 mg/dL (0.55-1.3); SGOT/AST 19 U/L (15-37); SGPT/ALT 25 U/L (13-61)
[2021-02-09 08:11] LABS: TOT PROT 7.9 g/dl (6.4-8.2)
[2021-02-09 08:12] LABS: ALK PHOS 90 U/L (45-117)
[2021-02-09 08:17] LABS: LACTIC ACID 3.2 mmol/L (0.4-2.0)
[2021-02-09 08:20] LABS: VENOUS BASE EXCESS -14.5 mmol/L (-2-2); VENOUS O2 SATURATION 86.1 % (70-80); VENOUS PCO2 33.2 mmHg (38-52)
[2021-02-09 08:21] LABS: VENOUS PH 7.192 (7.310-7.410)
[2021-02-09] MEDS ORDERED: INSULIN DRIP - PLEASE ORDER UNDER SETS NR ONE (08:21)
[2021-02-09] MEDS ORDERED: INSULIN REGULAR HUMAN 100 UNITS/ML *VIAL* (FOR IVP) IVPUSH ONE (08:24)
[2021-02-09] MEDS ORDERED: POTASSIUM CHLORIDE 10 MEQ in SODIUM CHLORIDE 1,000 ML IVPB STA (08:24)
[2021-02-09] MEDS ORDERED: INSULIN REGULAR 100 UNITS in SODIUM CHLORIDE 99 ML IVPB SCH (08:30)
[2021-02-09 08:37] LABS: GLUCOSE,RANDOM 481 mg/dL (74-106)
[2021-02-09] MEDS ORDERED: morphine CARPU-JECT 2 MG/1 ML DISP.SYRIN IVPUSH ONE (08:41)
[2021-02-09] MEDS ORDERED: MORPHINE SULFATE 2 MG/ML VIAL ONE (08:45)
[2021-02-09] MEDS ORDERED: DEXTROSE 5%-0.45% SALINE 1,000 ML IV SCH (11:15)
[2021-02-09 12:40] LABS: VENOUS BASE EXCESS -9.6 mmol/L (-2-2); VENOUS O2 SATURATION 97.9 % (70-80); VENOUS PCO2 32.1 mmHg (38-52); VENOUS PH 7.301 (7.310-7.410)
[2021-02-09 13:09] LABS: ALBUMIN 3.7 g/dl (3.4-5.0); BILIRUBIN,TOTAL 0.7 mg/dL (0.2-1); BLOOD UREA NITROGEN 19.1 mg/dL (7-18); CALCIUM 8.5 mg/dL (8.5-10.1); TOT PROT 6.3 g/dl (6.4-8.2)
[2021-02-09 14:34] VITALS: BMI 24.2
[2021-02-09] MEDS: Insulin (LOG) Aspart 100 UNITS/ML VIAL SQ SCH ×2 (15:29→18:27)
[2021-02-09] MEDS ORDERED: Insulin (LOG) Aspart 100 UNITS/ML VIAL SQ SCH (21:00)
[2021-02-09] MEDS: MUPIROCIN 2% TOPICAL OINTMENT FOR DECOLONIZATION NS SCH (21:19)
[2021-02-09] MEDS: INSULIN (LEVEMIR) 100 UNITS/ML UNITS SQ SCH (21:23)
[2021-02-09] MEDS ORDERED: INSULIN SLIDING SCALE (NOVOLOG) 1 VIAL SQ SCH (22:00)
[2021-02-09] MEDS ORDERED: CHLORHEXIDINE GLUCONATE 4% CLEANSER FOR DECOLONIZATION TP SCH (22:00)
[2021-02-10] MEDS: Insulin (LOG) Aspart 100 UNITS/ML VIAL SQ SCH (01:20)
[2021-02-10] MEDS: INSULIN SLIDING SCALE (NOVOLOG) 1 VIAL SQ SCH ×9 (02:44→21:01)
[2021-02-10] MEDS: INSULIN (LEVEMIR) 100 UNITS/ML UNITS SQ SCH ×2 (06:50→21:01)
[2021-02-10] MEDS ORDERED: Insulin (LOG) Aspart 100 UNITS/ML VIAL SQ SCH (07:00)
[2021-02-10 07:24] LABS: BASO % 0.4 % (0-2.0); EOS % 0.4 % (0-4.5); HEMATOCRIT 41.9 % (35.4-49); HEMOGLOBIN 14.7 GM/dL (11.7-16.9); LYMPH % 32.9 % (8-40); MCH 30.6 pg (25.7-33.7); MEAN CELL VOLUME 87.2 fl (80-96); MEAN PLT VOLUME 8.7 fl (7.5-11.1); MONO % 8.9 % (3.8-10.2); NEUT % 57.4 % (42.8-82.8); PLATELET COUNT 240 K/MM3 (134-434); RDW 12.6 % (11.9-15.9); WHITE BLOOD COUNT 7.7 K/mm3 (4.0-10.0)
[2021-02-10 07:39] LABS: ALBUMIN 3.3 g/dl (3.4-5.0)
[2021-02-10 07:40] LABS: BLOOD UREA NITROGEN 16.1 mg/dL (7-18); CALCIUM 8.5 mg/dL (8.5-10.1); MAGNESIUM 1.9 mg/dL (1.8-2.4)
[2021-02-10 07:43] LABS: BILIRUBIN,TOTAL 0.8 mg/dL (0.2-1); PHOSPHOROUS 2.3 mg/dL (2.5-4.9)
[2021-02-10] MEDS: MUPIROCIN 2% TOPICAL OINTMENT FOR DECOLONIZATION NS SCH (09:05)
[2021-02-10] MEDS ORDERED: ENOXAPARIN NA (PORCINE) 40 MG/0.4 ML DISP.SYRIN SQ SCH (10:00)
[2021-02-10] MEDS ORDERED: Insulin (LOG) Aspart 100 UNITS/ML VIAL SQ ONE (18:38)
[2021-02-10 19:25] LABS: BLOOD UREA NITROGEN 14.2 mg/dL (7-18)
[2021-02-10] MEDS ORDERED: ACETAMINOPHEN 325 MG TABLET (FP) PO ONE (20:50)
[2021-02-10] MEDS ORDERED: CHLORHEXIDINE GLUCONATE 4% CLEANSER FOR DECOLONIZATION TP SCH (22:00)
[2021-02-10] MEDS ORDERED: MUPIROCIN 2% TOPICAL OINTMENT FOR DECOLONIZATION NS SCH (22:00)
[2021-02-11] MEDS ORDERED: INSULIN (NOVOLOG) ASPART 100 UNITS/ML 10ML VIAL ONE (06:27)
[2021-02-11] MEDS: INSULIN SLIDING SCALE (NOVOLOG) 1 VIAL SQ SCH ×2 (06:52→10:41)
[2021-02-11] MEDS: INSULIN (LEVEMIR) 100 UNITS/ML UNITS SQ SCH (06:52)
[2021-02-11 07:59] LABS: HEMATOCRIT 44.7 % (35.4-49); HEMOGLOBIN 15.5 GM/dL (11.7-16.9); MCH 30.6 pg (25.7-33.7); MCHC 34.7 g/dl (32.0-35.9); MEAN CELL VOLUME 88.1 fl (80-96); MEAN PLT VOLUME 8.8 fl (7.5-11.1); PLATELET COUNT 218 K/MM3 (134-434); RBC 5.07 M/mm3 (4.00-5.60); RDW 12.7 % (11.9-15.9)
[2021-02-11 08:17] LABS: CALCIUM 8.9 mg/dL (8.5-10.1)
[2021-02-11 08:18] LABS: ALBUMIN 3.4 g/dl (3.4-5.0); BLOOD UREA NITROGEN 12.6 mg/dL (7-18)
[2021-02-11 08:21] LABS: CREATININE 0.7 mg/dL (0.55-1.3); PHOSPHOROUS 3.4 mg/dL (2.5-4.9)
[2021-02-11 08:22] LABS: BILIRUBIN,TOTAL 0.8 mg/dL (0.2-1); TOT PROT 6.3 g/dl (6.4-8.2)
[2021-02-11] MEDS ORDERED: ENOXAPARIN NA (PORCINE) 40 MG/0.4 ML DISP.SYRIN SQ SCH (10:00)
[2021-02-11] MEDS ORDERED: INSULIN (LEVEMIR) 100 UNITS/ML UNITS SQ SCH (13:09)
[2021-02-11 15:35] VITALS: BP 118/85; PULSE 81; TEMP 97.7
[2021-02-11] MEDS ORDERED: Insulin (LOG) Aspart 100 UNITS/ML VIAL SQ SCH (16:30)
== END 2021-02-11 18:07 | disposition left against medical advice (07) | DRG 420 ==
LOC: JER 06:57 → JERBED 09:14 → JICU 14:16 → J7W 02-10 14:41
PROVIDERS: ADMIT Internal Medicine; ATTEND Internal Medicine
DX: E10.10 Type 1 diabetes mellitus with ketoacidosis without coma (principal); N17.9 Acute kidney failure, unspecified; Z91.14 Patient's other noncompliance with medication regimen; F12.20 Cannabis dependence, uncomplicated; Z79.4 Long term (current) use of insulin
CPT/HCPCS: 36415; 71045-TC-FY; 80048; 80053; 82010; 82550; 82553; 82803; 82962; 83036; 83605; 83735; 84100; 84443; 84484; 85025; 85027; 85610; 85730; 87040; 93005; 93010; 99285-25; C9803; U0003; U0005

== ENCOUNTER 2021-07-05 14:09 | Inpatient (IN) | payer OTHER ==
[2021-07-05] MEDS ORDERED: SODIUM CHLORIDE 1,000 ML IV STA ×2 (14:48→14:49)
[2021-07-05] MEDS ORDERED: ONDANSETRON 4 MG/2 ML VIAL IVPUSH ONE (15:24)
[2021-07-05] MEDS ORDERED: ONDANSETRON 4 MG/2 ML VIAL ONE (15:24)
[2021-07-05 15:32] LABS: BASO % 0.3 % (0-2.0); EOS % 0.1 % (0-4.5); HEMATOCRIT 47.6 % (35.4-49); HEMOGLOBIN 15.9 GM/dL (11.7-16.9); LYMPH % 11.9 % (8-40); MCH 29.4 pg (25.7-33.7); MCHC 33.4 g/dl (32.0-35.9); MEAN CELL VOLUME 88.1 fl (80-96); MEAN PLT VOLUME 8.2 fl (7.5-11.1); MONO % 5.1 % (3.8-10.2); NEUT % 82.6 % (42.8-82.8); PLATELET COUNT 305 10^3/uL (134-434); RDW 12.5 % (11.9-15.9); WHITE BLOOD COUNT 14.9 K/mm3 (4.0-10.0)
[2021-07-05 15:36] LABS: VENOUS BASE EXCESS -13.6 mmol/L (-2-2); VENOUS O2 SATURATION 22.2 % (70-80); VENOUS PCO2 38.5 mmHg (38-52)
[2021-07-05 15:39] LABS: CHLORIDE 98 mmol/L (98-107); SODIUM 133 mmol/L (136-145)
[2021-07-05 15:40] LABS: VENOUS PH 7.179 (7.310-7.410)
[2021-07-05 15:41] LABS: ALBUMIN 4.6 g/dl (3.4-5.0); ANION GAP 21 MMOL/L (8-16); BLOOD UREA NITROGEN 23.9 mg/dL (7-18); CALCIUM 10.2 mg/dL (8.5-10.1); CO2 15 mmol/L (21-32); MAGNESIUM 2.3 mg/dL (1.8-2.4)
[2021-07-05 15:44] LABS: CREATININE 1.7 mg/dL (0.55-1.3); PHOSPHOROUS 5.1 mg/dL (2.5-4.9); SGOT/AST 35 U/L (15-37); SGPT/ALT 34 U/L (13-61)
[2021-07-05 15:46] LABS: BILIRUBIN,TOTAL 0.8 mg/dL (0.2-1); TOT PROT 7.9 g/dl (6.4-8.2)
[2021-07-05 15:47] LABS: ALK PHOS 92 U/L (45-117)
[2021-07-05 15:51] LABS: LACTIC ACID 3.8 mmol/L (0.4-2.0)
[2021-07-05] MEDS ORDERED: DEXTROSE 50%-WATER - 25 GM/50 ML VIAL IVPUSH PRN (15:56)
[2021-07-05] MEDS ORDERED: INSULIN REGULAR HUMAN 100 UNITS/ML *VIAL IVPUSH ONE (15:56)
[2021-07-05] MEDS ORDERED: INSULIN REGULAR 100 UNITS in SODIUM CHLORIDE 99 ML IVPB SCH (16:00)
[2021-07-05 16:24] LABS: GLUCOSE,RANDOM 587 mg/dL (74-106)
[2021-07-05 16:44] LABS: URINE APPEARANCE CLEAR; URINE BILIRUBIN NEGATIVE (NEGATIVE); URINE COLOR YELLOW; URINE GLUCOSE (UA) 3+ (NEGATIVE); URINE KETONE 4+ (NEGATIVE); URINE LEUK ESTERASE NEGATIVE (NEGATIVE); URINE NITRITE NEGATIVE (NEGATIVE); URINE PROTEIN NEGATIVE (NEGATIVE); URINE UROBILINOGEN 0.2 mg/dL (0.2-1.0)
[2021-07-05] MEDS ORDERED: ACETAMINOPHEN 1000 MG/100 ML VIAL IVPB PRN (18:46)
[2021-07-05] MEDS ORDERED: SODIUM CHLORIDE 1,000 ML IV SCH ×2 (19:00)
[2021-07-05 20:03] LABS: BLOOD UREA NITROGEN 19.9 mg/dL (7-18); CALCIUM 9.1 mg/dL (8.5-10.1)
[2021-07-05 20:07] LABS: CREATININE 1.4 mg/dL (0.55-1.3)
[2021-07-05] MEDS ORDERED: DEXTROSE 5%-0.45% SALINE 1,000 ML IV SCH (21:00)
[2021-07-05] MEDS: HEPARIN NA (PORCINE) 5,000 UNITS/ML 1ML VIAL SQ SCH (21:35)
[2021-07-05] MEDS: MUPIROCIN 2% TOPICAL OINTMENT FOR DECOLONIZATION NS SCH (21:36)
[2021-07-05 21:57] LABS: VENOUS BASE EXCESS -10.9 mmol/L (-2-2); VENOUS O2 SATURATION 49.1 % (70-80); VENOUS PCO2 38.5 mmHg (38-52); VENOUS PH 7.232 (7.310-7.410)
[2021-07-05] MEDS ORDERED: CHLORHEXIDINE GLUCONATE 4% CLEANSER FOR DECOLONIZATION TP SCH (22:00)
[2021-07-05 22:24] LABS: CALCIUM 8.8 mg/dL (8.5-10.1)
[2021-07-05 22:25] LABS: BLOOD UREA NITROGEN 20.3 mg/dL (7-18)
[2021-07-05 22:28] LABS: CREATININE 1.3 mg/dL (0.55-1.3)
[2021-07-06 02:07] VITALS: BMI 24.2
[2021-07-06] MEDS ORDERED: ACETAMINOPHEN 325 MG TABLET (FP) PO PRN (03:50)
[2021-07-06 06:43] LABS: BASO % 0.3 % (0-2.0); EOS % 0.1 % (0-4.5); HEMATOCRIT 39.8 % (35.4-49); HEMOGLOBIN 13.8 GM/dL (11.7-16.9); LYMPH % 17.8 % (8-40); MCHC 34.8 g/dl (32.0-35.9); MEAN CELL VOLUME 86.3 fl (80-96); MEAN PLT VOLUME 8.5 fl (7.5-11.1); MONO % 8.9 % (3.8-10.2); NEUT % 72.9 % (42.8-82.8); PLATELET COUNT 257 10^3/uL (134-434); RBC 4.61 M/mm3 (4.00-5.60); RDW 12.7 % (11.9-15.9); WHITE BLOOD COUNT 10.5 K/mm3 (4.0-10.0)
[2021-07-06 06:52] LABS: CALCIUM 8.5 mg/dL (8.5-10.1)
[2021-07-06 06:53] LABS: BLOOD UREA NITROGEN 15.1 mg/dL (7-18); MAGNESIUM 1.6 mg/dL (1.8-2.4)
[2021-07-06 06:56] LABS: CREATININE 1.2 mg/dL (0.55-1.3); PHOSPHOROUS 3.2 mg/dL (2.5-4.9)
[2021-07-06] MEDS ORDERED: SODIUM CHLORIDE 0.45% 1,000 ML IV SCH ×2 (07:45→12:40)
[2021-07-06] MEDS ORDERED: INSULIN (LEVEMIR) 100 UNITS/ML UNITS SQ ONE ×3 (08:00→11:36)
[2021-07-06] MEDS ORDERED: MAGNESIUM SULF 50% (8.12 MEQ/2 ML-1 GM VIAL) IVPB ONE (08:30)
[2021-07-06] MEDS: HEPARIN NA (PORCINE) 5,000 UNITS/ML 1ML VIAL SQ SCH ×2 (09:08→21:02)
[2021-07-06] MEDS: MUPIROCIN 2% TOPICAL OINTMENT FOR DECOLONIZATION NS SCH ×2 (09:09→21:01)
[2021-07-06] MEDS ORDERED: INSULIN SLIDING SCALE (NOVOLOG) 1 VIAL SQ SCH (11:00)
[2021-07-06] MEDS ORDERED: DEXTROSE 50%-WATER - 25 GM/50 ML VIAL IVPUSH PRN (12:40)
[2021-07-06] MEDS ORDERED: INSULIN REGULAR 100 UNITS in SODIUM CHLORIDE 99 ML IVPB SCH (12:40)
[2021-07-06] MEDS: INSULIN SLIDING SCALE (NOVOLOG) 1 VIAL SQ SCH ×2 (15:52→21:02)
[2021-07-06] MEDS: ACETAMINOPHEN 325 MG TABLET (FP) PO PRN ×2 (15:58→21:07)
[2021-07-06] MEDS: INSULIN (LEVEMIR) 100 UNITS/ML UNITS SQ SCH (21:02)
[2021-07-06] MEDS ORDERED: INSULIN (LEVEMIR) 100 UNITS/ML UNITS SQ SCH (22:00)
[2021-07-06] MEDS ORDERED: CHLORHEXIDINE GLUCONATE 4% CLEANSER FOR DECOLONIZATION TP SCH (22:00)
[2021-07-07] MEDS: ACETAMINOPHEN 325 MG TABLET (FP) PO PRN ×2 (03:10→08:15)
[2021-07-07] MEDS: INSULIN SLIDING SCALE (NOVOLOG) 1 VIAL SQ SCH ×3 (06:19→15:42)
[2021-07-07 07:30] LABS: BASO % 0.4 % (0-2.0); EOS % 0.7 % (0-4.5); HEMATOCRIT 41.1 % (35.4-49); HEMOGLOBIN 14.3 GM/dL (11.7-16.9); LYMPH % 40.7 % (8-40); MCHC 34.9 g/dl (32.0-35.9); MEAN PLT VOLUME 8.2 fl (7.5-11.1); NEUT % 50.2 % (42.8-82.8); PLATELET COUNT 249 10^3/uL (134-434); RBC 4.78 M/mm3 (4.00-5.60); RDW 12.7 % (11.9-15.9)
[2021-07-07 08:24] LABS: BLOOD UREA NITROGEN 9.4 mg/dL (7-18); CALCIUM 8.7 mg/dL (8.5-10.1); MAGNESIUM 1.8 mg/dL (1.8-2.4)
[2021-07-07 08:27] LABS: CREATININE 0.7 mg/dL (0.55-1.3); PHOSPHOROUS 2.7 mg/dL (2.5-4.9)
[2021-07-07 08:28] LABS: BILIRUBIN,TOTAL 0.4 mg/dL (0.2-1); TOT PROT 6.1 g/dl (6.4-8.2)
[2021-07-07 09:20] VITALS: TEMP 98.8
[2021-07-07] MEDS: MUPIROCIN 2% TOPICAL OINTMENT FOR DECOLONIZATION NS SCH (09:42)
[2021-07-07] MEDS: HEPARIN NA (PORCINE) 5,000 UNITS/ML 1ML VIAL SQ SCH (09:42)
[2021-07-07] MEDS ORDERED: IBUPROFEN 400 MG TABLET (FP) PO PRN (09:55)
[2021-07-07] MEDS: INSULIN (LEVEMIR) 100 UNITS/ML UNITS SQ SCH (10:12)
[2021-07-07] MEDS ORDERED: PT OWN MED DRAWER 7, Y5N ONE (10:27)
[2021-07-07] MEDS ORDERED: POTASSIUM CHLORIDE TABS 20 MEQ TABLET.ER (FP) PO ONE (13:58)
[2021-07-07 15:49] VITALS: BP 132/95; PULSE 106
== END 2021-07-07 16:15 | disposition home or self-care (01) | DRG 420 ==
LOC: JER 14:09 → JERBED 14:50 → JICU 19:56
PROVIDERS: ADMIT Internal Medicine Pulmonary Disease; ATTEND Internal Medicine
DX: E10.10 Type 1 diabetes mellitus with ketoacidosis without coma (principal); N17.9 Acute kidney failure, unspecified; E87.5 Hyperkalemia; Z79.4 Long term (current) use of insulin
CPT/HCPCS: 36415; 71045-TC-FY; 80048; 80053; 81003; 82010; 82803; 82962; 83036; 83605; 83735; 84100; 85025; 87040; 87086; 93005; 93010; 99291; C9803; J1644; U0003; U0005

== ENCOUNTER 2021-11-22 13:15 | Inpatient (IN) | payer OTHER ==
[2021-11-22 13:22] VITALS: BMI 23.5
[2021-11-22] MEDS ORDERED: ONDANSETRON 4 MG/2 ML VIAL IVPUSH ONE (13:42)
[2021-11-22] MEDS ORDERED: SODIUM CHLORIDE 0.9% 500 ML INFUS.BAG IV ONE ×3 (13:43→16:18)
[2021-11-22] MEDS ORDERED: ONDANSETRON 4 MG/2 ML VIAL ONE (13:43)
[2021-11-22 14:11] LABS: BASO % 0.5 % (0-2.0); HEMATOCRIT 46.4 % (35.4-49); HEMOGLOBIN 15.6 GM/dL (11.7-16.9); LYMPH % 11.5 % (8-40); MCH 29.6 pg (25.7-33.7); MCHC 33.7 g/dl (32.0-35.9); MEAN CELL VOLUME 87.9 fl (80-96); MEAN PLT VOLUME 8.5 fl (7.5-11.1); MONO % 6.3 % (3.8-10.2); NEUT % 81.7 % (42.8-82.8); PLATELET COUNT 279 10^3/uL (134-434); RBC 5.28 M/mm3 (4.00-5.60); RDW 13.1 % (11.9-15.9); VENOUS BASE EXCESS -15.3 mmol/L (-2-2); VENOUS O2 SATURATION 74.7 % (70-80); VENOUS PCO2 27.3 mmHg (38-52); VENOUS PH 7.213 (7.310-7.410); WHITE BLOOD COUNT 12.1 K/mm3 (4.0-10.0)
[2021-11-22 14:28] LABS: INR 0.96 (0.83-1.09)
[2021-11-22 14:31] LABS: ACTIVATED PTT 24.2 SECONDS (25.2-36.5)
[2021-11-22 14:39] LABS: CHLORIDE 96 mmol/L (98-107); SODIUM 132 mmol/L (136-145)
[2021-11-22 14:41] LABS: BLOOD UREA NITROGEN 26.1 mg/dL (7-18)
[2021-11-22 14:42] LABS: ALBUMIN 4.4 g/dl (3.4-5.0); ANION GAP 22 MMOL/L (8-16); CO2 14 mmol/L (21-32); MAGNESIUM 2.1 mg/dL (1.8-2.4)
[2021-11-22 14:45] LABS: PHOSPHOROUS 5.8 mg/dL (2.5-4.9); SGOT/AST 36 U/L (15-37)
[2021-11-22 14:46] LABS: BILIRUBIN,TOTAL 0.9 mg/dL (0.2-1); TOT PROT 7.1 g/dl (6.4-8.2)
[2021-11-22 14:47] LABS: ALK PHOS 78 U/L (45-117)
[2021-11-22 14:52] LABS: CALCIUM 9.7 mg/dL (8.5-10.1)
[2021-11-22 14:59] LABS: CREATININE 1.5 mg/dL (0.55-1.3); GLUCOSE,RANDOM 491 mg/dL (74-106); SGPT/ALT 27 U/L (13-61)
[2021-11-22] MEDS ORDERED: SODIUM CHLORIDE 0.9%/KCL 20 MEQ/1,000 ML INFUS.BAG IV SCH ×3 (15:30→16:00)
[2021-11-22] MEDS ORDERED: INSULIN REGULAR 100 UNITS in SODIUM CHLORIDE 99 ML IVPB SCH ×3 (15:30→20:38)
[2021-11-22 15:52] LABS: CHLORIDE 99 mmol/L (98-107); SODIUM 133 mmol/L (136-145)
[2021-11-22 15:53] LABS: CALCIUM 9.4 mg/dL (8.5-10.1)
[2021-11-22 15:54] LABS: ANION GAP 24 MMOL/L (8-16); BLOOD UREA NITROGEN 26.4 mg/dL (7-18); CO2 10 mmol/L (21-32)
[2021-11-22] MEDS ORDERED: INSULIN REGULAR HUMAN 100 UNITS/ML *VIAL IVPUSH ONE (15:58)
[2021-11-22 16:15] LABS: CREATININE 1.3 mg/dL (0.55-1.3); GLUCOSE,RANDOM 543 mg/dL (74-106)
[2021-11-22 16:52] LABS: METHADONE, UR NEGATIVE (NEGATIVE); PHENCYCLIDINE,URINE NEGATIVE (NEGATIVE)
[2021-11-22 16:53] LABS: OPIATES, URI NEGATIVE (NEGATIVE); URINE BARBITURATES NEGATIVE (NEGATIVE)
[2021-11-22 16:54] LABS: COCAINE, UR NEGATIVE (NEGATIVE); URINE AMPHETAMINES NEGATIVE (NEGATIVE); URINE BENZODIAZEPINES NEGATIVE (NEGATIVE)
[2021-11-22] MEDS ORDERED: INSULIN REGULAR HUMAN 100 UNITS/ML *VIAL* (FOR IVP) IVPUSH ONE (17:32)
[2021-11-22] MEDS ORDERED: ONDANSETRON 4 MG/2 ML VIAL IVPUSH PRN (17:32)
[2021-11-22 17:43] LABS: URINE APPEARANCE CLEAR; URINE BILIRUBIN NEGATIVE (NEGATIVE); URINE COLOR YELLOW; URINE GLUCOSE (UA) 3+ (NEGATIVE); URINE KETONE 3+ (NEGATIVE); URINE LEUK ESTERASE NEGATIVE (NEGATIVE); URINE NITRITE NEGATIVE (NEGATIVE); URINE PROTEIN NEGATIVE (NEGATIVE); URINE UROBILINOGEN 0.2 mg/dL (0.2-1.0)
[2021-11-22] MEDS ORDERED: SODIUM CHLORIDE 1,000 ML IV SCH ×3 (19:15→23:15)
[2021-11-22 20:39] LABS: ALBUMIN 3.6 g/dl (3.4-5.0); BLOOD UREA NITROGEN 22.8 mg/dL (7-18)
[2021-11-22 20:42] LABS: CREATININE 1.4 mg/dL (0.55-1.3)
[2021-11-22 20:43] LABS: BILIRUBIN,TOTAL 0.8 mg/dL (0.2-1); TOT PROT 6.4 g/dl (6.4-8.2)
[2021-11-22] MEDS ORDERED: DEXTROSE 5%-0.45% SALINE 1,000 ML IV SCH (20:45)
[2021-11-22] MEDS ORDERED: D5-1/2NS+20 MEQ KCL - 20 MEQ/1,000 ML INFUS.BAG IV SCH (21:00)
[2021-11-22 21:05] LABS: CHLORIDE 97 mmol/L (98-107); SODIUM 131 mmol/L (136-145)
[2021-11-22 21:07] LABS: ANION GAP 23 MMOL/L (8-16); CO2 11 mmol/L (21-32)
[2021-11-22 21:08] LABS: BLOOD UREA NITROGEN 25.4 mg/dL (7-18)
[2021-11-22 21:11] LABS: CREATININE 1.4 mg/dL (0.55-1.3)
[2021-11-22 21:14] LABS: GLUCOSE,RANDOM 558 mg/dL (74-106)
[2021-11-22] MEDS ORDERED: MUPIROCIN 2% TOPICAL OINTMENT FOR DECOLONIZATION NS SCH (22:00)
[2021-11-22] MEDS ORDERED: CHLORHEXIDINE GLUCONATE 4% CLEANSER FOR DECOLONIZATION TP SCH (22:00)
[2021-11-22 22:15] LABS: CALCIUM 8.3 mg/dL (8.5-10.1)
[2021-11-22 22:16] LABS: BLOOD UREA NITROGEN 20.2 mg/dL (7-18)
[2021-11-22 22:19] LABS: CREATININE 1.3 mg/dL (0.55-1.3)
[2021-11-22 23:07] LABS: CALCIUM 8.4 mg/dL (8.5-10.1)
[2021-11-22 23:08] LABS: BLOOD UREA NITROGEN 19.7 mg/dL (7-18)
[2021-11-22 23:11] LABS: CREATININE 1.4 mg/dL (0.55-1.3)
[2021-11-22] MEDS ORDERED: SODIUM CHLORIDE 0.45% 1,000 ML IV SCH (23:15)
[2021-11-22] MEDS ORDERED: INSULIN (LEVEMIR) 100 UNITS/ML UNITS SQ SCH (23:15)
[2021-11-22] MEDS ORDERED: INSULIN SLIDING SCALE (NOVOLOG) 1 VIAL SQ SCH (23:43)
[2021-11-22] MEDS ORDERED: INSULIN (NOVOLOG) ASPART 100 UNITS/ML 10ML VIAL SQ ONE (23:50)
[2021-11-23] MEDS ORDERED: ONDANSETRON 4 MG/2 ML VIAL IVPUSH PRN (00:48)
[2021-11-23] MEDS: SODIUM CHLORIDE 0.45% 1,000 ML IV SCH ×2 (01:14→08:58)
[2021-11-23] MEDS: INSULIN SLIDING SCALE (NOVOLOG) 1 VIAL SQ SCH ×3 (06:38→17:59)
[2021-11-23] MEDS ORDERED: INSULIN SLIDING SCALE (NOVOLOG) 1 VIAL SQ SCH ×2 (07:00→23:40)
[2021-11-23] MEDS ORDERED: INSULIN (LEVEMIR) 100 UNITS/ML UNITS SQ SCH (07:00)
[2021-11-23 07:15] LABS: CALCIUM 8.8 mg/dL (8.5-10.1)
[2021-11-23 07:16] LABS: ALBUMIN 3.2 g/dl (3.4-5.0); BLOOD UREA NITROGEN 18.2 mg/dL (7-18); MAGNESIUM 2.2 mg/dL (1.8-2.4)
[2021-11-23 07:19] LABS: CREATININE 1.1 mg/dL (0.55-1.3); PHOSPHOROUS 3.1 mg/dL (2.5-4.9)
[2021-11-23 07:20] LABS: BILIRUBIN,TOTAL 0.8 mg/dL (0.2-1); TOT PROT 5.5 g/dl (6.4-8.2)
[2021-11-23 07:27] LABS: BASO % 0.5 % (0-2.0); EOS % 0.2 % (0-4.5); HEMATOCRIT 41.4 % (35.4-49); HEMOGLOBIN 14.3 GM/dL (11.7-16.9); LYMPH % 24.6 % (8-40); MCH 29.7 pg (25.7-33.7); MCHC 34.4 g/dl (32.0-35.9); MEAN CELL VOLUME 86.3 fl (80-96); MEAN PLT VOLUME 7.9 fl (7.5-11.1); MONO % 10.2 % (3.8-10.2); NEUT % 64.5 % (42.8-82.8); PLATELET COUNT 247 10^3/uL (134-434); RDW 13.2 % (11.9-15.9); WHITE BLOOD COUNT 10.4 K/mm3 (4.0-10.0)
[2021-11-23] MEDS ORDERED: MUPIROCIN 2% TOPICAL OINTMENT FOR DECOLONIZATION NS SCH (10:00)
[2021-11-23] MEDS ORDERED: ENOXAPARIN NA (PORCINE) 40 MG/0.4 ML DISP.SYRIN SQ SCH ×2 (10:00)
[2021-11-23 14:13] VITALS: BP 112/50; PULSE 95; TEMP 97.8
[2021-11-23] MEDS ORDERED: Insulin (LOG) Aspart 100 UNITS/ML VIAL SQ SCH (16:30)
[2021-11-23] MEDS ORDERED: CHLORHEXIDINE GLUCONATE 4% CLEANSER FOR DECOLONIZATION TP SCH (22:00)
== END 2021-11-23 18:20 | disposition left against medical advice (07) | DRG 420 ==
LOC: JER 13:15 → JERBED 15:30 → JICU 18:57 → J4S 11-23 01:08
PROVIDERS: ADMIT Internal Medicine Pulmonary Disease; ATTEND Internal Medicine
DX: E11.10 Type 2 diabetes mellitus with ketoacidosis without coma (principal); N17.9 Acute kidney failure, unspecified; E86.0 Dehydration
CPT/HCPCS: 36415; 71045-TC-FY; 80048; 80053; 80307; 81003; 82010; 82803; 82962; 83735; 84100; 84484; 85025; 85610; 85730; 87086; 93005; 93010; 99285-25; C9803-CS; U0003; U0005

== ENCOUNTER 2022-06-11 00:08 | Inpatient (IN) | payer OTHER ==
[2022-06-11] MEDS ORDERED: SODIUM CHLORIDE 0.9% 500 ML INFUS.BAG IV ONE (01:11)
[2022-06-11] MEDS ORDERED: ONDANSETRON 4 MG/2 ML VIAL IVPUSH ONE (01:11)
[2022-06-11] MEDS ORDERED: ONDANSETRON 4 MG/2 ML VIAL ONE (01:15)
[2022-06-11 02:00] LABS: BASO % 0.3 % (0-2.0); EOS % 0.2 % (0-4.5); HEMATOCRIT 43.2 % (35.4-49); HEMOGLOBIN 14.5 GM/dL (11.7-16.9); MCH 29.3 pg (25.7-33.7); MCHC 33.5 g/dl (32.0-35.9); MEAN CELL VOLUME 87.5 fl (80-96); MEAN PLT VOLUME 8.4 fl (7.5-11.1); MONO % 6.2 % (3.8-10.2); NEUT % 76.3 % (42.8-82.8); PLATELET COUNT 250 10^3/uL (134-434); RBC 4.94 M/mm3 (4.00-5.60); RDW 12.8 % (11.9-15.9); WHITE BLOOD COUNT 8.7 K/mm3 (4.0-10.0)
[2022-06-11 02:17] LABS: CHLORIDE 94 mmol/L (98-107)
[2022-06-11 02:20] LABS: LIPASE 99 U/L (73-393)
[2022-06-11 02:23] LABS: CREATININE 1.3 mg/dL (0.55-1.3); SGOT/AST 23 U/L (15-37); SGPT/ALT 27 U/L (13-61)
[2022-06-11 02:24] LABS: BILIRUBIN,TOTAL 0.9 mg/dL (0.2-1)
[2022-06-11 02:26] LABS: ALK PHOS 73 U/L (45-117)
[2022-06-11 02:40] LABS: ALBUMIN 4.2 g/dl (3.4-5.0); ANION GAP 26 MMOL/L (8-16); CALCIUM 9.4 mg/dL (8.5-10.1); CO2 12 mmol/L (21-32); GLUCOSE,RANDOM 563 mg/dL (74-106); MAGNESIUM 2.1 mg/dL (1.8-2.4); SODIUM 132 mmol/L (136-145)
[2022-06-11] MEDS ORDERED: SODIUM CHLORIDE 1,000 ML IV STA ×2 (02:57→05:50)
[2022-06-11] MEDS ORDERED: POTASSIUM CHLORIDE 20 MEQ PREMIX IVPB 100 ML IVPB ONE (02:59)
[2022-06-11] MEDS ORDERED: INSULIN REGULAR HUMAN 100 UNITS/ML *VIAL IVPUSH ONE (03:00)
[2022-06-11] MEDS ORDERED: INSULIN REGULAR 100 UNITS in SODIUM CHLORIDE 99 ML IVPB SCH (03:15)
[2022-06-11 03:29] LABS: VENOUS BASE EXCESS -8.1 mmol/L (-2-2); VENOUS O2 SATURATION 42.1 % (70-80); VENOUS PCO2 46.5 mmHg (38-52); VENOUS PH 7.236 (7.310-7.410)
[2022-06-11] MEDS ORDERED: KCL 10 MEQ IVPB 10 MEQ/100 ML INFUS.BAG IVPB SCH (03:45)
[2022-06-11] MEDS ORDERED: INSULIN REGULAR HUMAN 100 UNITS/ML *VIAL ONE (04:05)
[2022-06-11] MEDS ORDERED: SODIUM CHLORIDE 0.9%/KCL 20 MEQ/1,000 ML INFUS.BAG IV SCH (04:45)
[2022-06-11 05:47] LABS: URINE APPEARANCE CLEAR; URINE BILIRUBIN NEGATIVE (NEGATIVE); URINE COLOR YELLOW; URINE GLUCOSE (UA) 3+ (NEGATIVE); URINE KETONE 3+ (NEGATIVE); URINE LEUK ESTERASE NEGATIVE (NEGATIVE); URINE NITRITE NEGATIVE (NEGATIVE); URINE PROTEIN NEGATIVE (NEGATIVE); URINE UROBILINOGEN 0.2 mg/dL (0.2-1.0)
[2022-06-11] MEDS ORDERED: SODIUM CHLORIDE 1,000 ML IV SCH (06:00)
[2022-06-11] MEDS ORDERED: D5-1/2NS+20 MEQ KCL - 20 MEQ/1,000 ML INFUS.BAG IV SCH ×2 (06:15→11:19)
[2022-06-11 07:05] LABS: BASO % 0.3 % (0-2.0); EOS % 0.1 % (0-4.5); HEMATOCRIT 40.5 % (35.4-49); HEMOGLOBIN 13.4 GM/dL (11.7-16.9); MCH 28.7 pg (25.7-33.7); MCHC 33.2 g/dl (32.0-35.9); MEAN CELL VOLUME 86.6 fl (80-96); MEAN PLT VOLUME 8.1 fl (7.5-11.1); MONO % 9.1 % (3.8-10.2); NEUT % 73.5 % (42.8-82.8); PLATELET COUNT 259 10^3/uL (134-434); RBC 4.67 M/mm3 (4.00-5.60); RDW 12.7 % (11.9-15.9); WHITE BLOOD COUNT 9.9 K/mm3 (4.0-10.0)
[2022-06-11 07:55] LABS: BLOOD UREA NITROGEN 20.6 mg/dL (7-18)
[2022-06-11 07:58] LABS: CREATININE 0.9 mg/dL (0.55-1.3)
[2022-06-11] MEDS ORDERED: FLU VACC QS2022-23(6MOS UP)/PF 60 MCG/0.5 ML SYRINGE IM ONE (10:00)
[2022-06-11] MEDS: PANTOPRAZOLE SODIUM 40 MG VIAL IVPUSH SCH (10:18)
[2022-06-11 10:33] LABS: COCAINE, UR NEGATIVE (NEGATIVE); URINE BARBITURATES NEGATIVE (NEGATIVE)
[2022-06-11] MEDS: MUPIROCIN 2% TOPICAL OINTMENT FOR DECOLONIZATION NS SCH ×2 (10:33→21:36)
[2022-06-11 10:34] LABS: PHENCYCLIDINE,URINE NEGATIVE (NEGATIVE)
[2022-06-11 10:38] LABS: METHADONE, UR NEGATIVE (NEGATIVE); OPIATES, URI NEGATIVE (NEGATIVE); URINE AMPHETAMINES NEGATIVE (NEGATIVE); URINE BENZODIAZEPINES NEGATIVE (NEGATIVE)
[2022-06-11] MEDS ORDERED: ACETAMINOPHEN 325 MG TABLET (FP) PO ONE (10:56)
[2022-06-11 11:42] LABS: BLOOD UREA NITROGEN 17.2 mg/dL (7-18); CALCIUM 8.4 mg/dL (8.5-10.1)
[2022-06-11 11:45] LABS: CREATININE 0.9 mg/dL (0.55-1.3)
[2022-06-11] MEDS ORDERED: INSULIN (LEVEMIR) 100 UNITS/ML UNITS SQ ONE (13:23)
[2022-06-11] MEDS: INSULIN SLIDING SCALE (NOVOLOG) 1 VIAL SQ SCH ×2 (15:54→21:32)
[2022-06-11 16:36] LABS: BLOOD UREA NITROGEN 15.7 mg/dL (7-18); CALCIUM 8.7 mg/dL (8.5-10.1)
[2022-06-11 16:40] LABS: CREATININE 0.9 mg/dL (0.55-1.3)
[2022-06-11] MEDS ORDERED: LACTATED RINGERS SOLUTION 1,000 ML/1,000 ML INFUS.BAG IV STA (16:47)
[2022-06-11 21:08] LABS: CALCIUM 8.7 mg/dL (8.5-10.1)
[2022-06-11 21:10] LABS: BLOOD UREA NITROGEN 14.5 mg/dL (7-18)
[2022-06-11] MEDS: INSULIN (LEVEMIR) 100 UNITS/ML UNITS SQ SCH (21:32)
[2022-06-11] MEDS: CHLORHEXIDINE GLUCONATE 4% CLEANSER FOR DECOLONIZATION TP SCH (21:35)
[2022-06-12] MEDS ORDERED: SODIUM CHLORIDE 0.9% 500 ML INFUS.BAG IV ONE (06:35)
[2022-06-12] MEDS ORDERED: ACETAMINOPHEN 325 MG TABLET (FP) PO PRN (06:35)
[2022-06-12] MEDS: INSULIN SLIDING SCALE (NOVOLOG) 1 VIAL SQ SCH ×4 (06:53→22:17)
[2022-06-12] MEDS: INSULIN (LEVEMIR) 100 UNITS/ML UNITS SQ SCH ×2 (06:54→22:17)
[2022-06-12 07:32] LABS: BASO % 0.4 % (0-2.0); EOS % 0.9 % (0-4.5); HEMATOCRIT 44.2 % (35.4-49); HEMOGLOBIN 14.7 GM/dL (11.7-16.9); LYMPH % 36.9 % (8-40); MCH 28.9 pg (25.7-33.7); MCHC 33.4 g/dl (32.0-35.9); MEAN CELL VOLUME 86.6 fl (80-96); MEAN PLT VOLUME 8.2 fl (7.5-11.1); MONO % 9.4 % (3.8-10.2); NEUT % 52.4 % (42.8-82.8); PLATELET COUNT 283 10^3/uL (134-434); RDW 12.9 % (11.9-15.9); WHITE BLOOD COUNT 6.9 K/mm3 (4.0-10.0)
[2022-06-12 07:54] LABS: CALCIUM 8.8 mg/dL (8.5-10.1)
[2022-06-12 07:55] LABS: BLOOD UREA NITROGEN 11.4 mg/dL (7-18); MAGNESIUM 1.9 mg/dL (1.8-2.4)
[2022-06-12 07:59] LABS: CREATININE 0.9 mg/dL (0.55-1.3); PHOSPHOROUS 2.6 mg/dL (2.5-4.9)
[2022-06-12] MEDS: PANTOPRAZOLE SODIUM 40 MG VIAL IVPUSH SCH (10:20)
[2022-06-12] MEDS: MUPIROCIN 2% TOPICAL OINTMENT FOR DECOLONIZATION NS SCH ×2 (10:20→22:16)
[2022-06-12] MEDS: CHLORHEXIDINE GLUCONATE 4% CLEANSER FOR DECOLONIZATION TP SCH (22:16)
[2022-06-13 06:00] VITALS: BP 125/67; PULSE 71; TEMP 97.9
[2022-06-13] MEDS: INSULIN (LEVEMIR) 100 UNITS/ML UNITS SQ SCH (06:05)
[2022-06-13] MEDS: INSULIN (NOVOLOG) ASPART 100 UNITS/ML 10ML VIAL SQ SCH ×2 (06:06→14:03)
[2022-06-13] MEDS: INSULIN SLIDING SCALE (NOVOLOG) 1 VIAL SQ SCH ×2 (06:06→14:02)
[2022-06-13 08:04] LABS: BASO % 0.5 % (0-2.0); HEMATOCRIT 44.4 % (35.4-49); HEMOGLOBIN 15.2 GM/dL (11.7-16.9); LYMPH % 50.5 % (8-40); MCH 29.1 pg (25.7-33.7); MCHC 34.2 g/dl (32.0-35.9); MEAN CELL VOLUME 85.1 fl (80-96); MEAN PLT VOLUME 7.9 fl (7.5-11.1); MONO % 9.3 % (3.8-10.2); NEUT % 38.7 % (42.8-82.8); PLATELET COUNT 270 10^3/uL (134-434); RBC 5.22 M/mm3 (4.00-5.60); WHITE BLOOD COUNT 5.2 K/mm3 (4.0-10.0)
[2022-06-13 08:26] LABS: MAGNESIUM 1.9 mg/dL (1.8-2.4)
[2022-06-13 08:27] LABS: CREATININE 0.9 mg/dL (0.55-1.3)
[2022-06-13 08:29] LABS: BILIRUBIN,TOTAL 0.4 mg/dL (0.2-1); TOT PROT 5.9 g/dl (6.4-8.2)
[2022-06-13 08:32] LABS: ALBUMIN 3.3 g/dl (3.4-5.0)
[2022-06-13 09:17] VITALS: RESP 17
[2022-06-13] MEDS ORDERED: POTASSIUM CHLORIDE TABS 20 MEQ TABLET.ER (FP) PO ONE (09:30)
[2022-06-13] MEDS: MUPIROCIN 2% TOPICAL OINTMENT FOR DECOLONIZATION NS SCH (10:38)
[2022-06-13] MEDS: PANTOPRAZOLE SODIUM 40 MG VIAL IVPUSH SCH (10:38)
[2022-06-13 13:58] VITALS: BMI 24.6
== END 2022-06-13 15:10 | disposition home or self-care (01) | DRG 420 ==
LOC: JER 00:08 → JICU 03:51
PROVIDERS: ADMIT Internal Medicine Pulmonary Disease; ATTEND Nurse Practitioner Family
DX: E10.10 Type 1 diabetes mellitus with ketoacidosis without coma (principal); E86.0 Dehydration; R11.0 Nausea; R53.83 Other fatigue; R63.1 Polydipsia
CPT/HCPCS: 36415; 80048; 80053; 80307; 81003; 82010; 82803; 82962; 83036; 83690; 83735; 84100; 84484; 85025; 87086; 93005; 93010; 99291; C9803-CS; U0003; U0005